=== PATIENT | male | born 1940 | race Caucasian/White ===

== ENCOUNTER 2017-11-14 10:51 | Emergency (ER) | payer OTHER ==
[2017-11-14] MEDS ORDERED: FENTANYL CITR 100 MCG/2 ML ONE (12:25)
--- NOTE | 2017-11-14 13:01 | RAD REPORT ---
EXAM DESCRIPTION: US - Abdomen Exam Limited - 11/14/2017 12:44 pm CLINICAL HISTORY: ABD PAIN COMPARISON: RP EXAM COMPLETE dated 08/03/2011 FINDINGS: The gallbladder demonstrates no gallstones. No pericholecystic fluid or gallbladder wall t hickening. The common bile duct is normal measuring 3 mm. The liver demonstrates no findings of intrahepatic biliary dilatation. IMPRESSION: Unremarkable examination.
--- NOTE | 2017-11-14 13:03 | RAD REPORT ---
EXAM DESCRIPTION: CT - Chest Abd Pelvis Wo Con - 11/14/2017 12:47 pm CLINICAL HISTORY: Chest and abdominal pain status post fall COMPARISON: April 2016 TECHNIQUE: Computed axial tomography of the chest, abdomen and pelvis was obtained. Oral contrast wa s given. IV contrast was not requested. All CT scans are performed using dose optimization technique as appropriate and may include automated exposure control or mA/KV adjustment according to patient size. FINDINGS: The evaluation of mediastinum, rossana, vessels and solid organs is limited secondary to the lack of IV contrast administration A nondisplaced fracture involves the right posterior tenth rib. Mildly displaced fractures involve t he right eleventh and twelfth posterior ribs. A pneumothorax is not seen. A pleural effusion is not visualized. A mediastinal hematoma is not seen. Coronary arterial calcifications are present. The liver, spleen, pancreas, adrenals and kidneys do not demonstrate a significant abnormality. The b ladder appears grossly normal. Inguinal hernias contain fat. A small hiatal hernia is present There is no evidence of diverticulitis. The appendix is normal. IMPRESSION: Fractures involving of right tenth, eleventh and twelfth posterior ribs No traumatic injury involving the abdomen/pelvis is seen.
--- NOTE | 2017-11-14 13:36 | EDPHYS ---
Physician Documentation [facility] Name: Victor Hugo Gray Age: 77 yrs Sex: Male : 1940 Arrival Date: 11/14/2017 Time: 10:54 Bed 23 Private MD: Raymundo Morrison ED Physician Ry James HPI: 11/14 12:21 This 77 yrs old Male presents to ER via Ambulatory with complaints of SIDE snw PAIN. 12:21 Pt states he went to bed fine last pm and then awoke and has severe pain to right snw back/flank/abdomen. Onset: The symptoms/episode began/occurred suddenly. Severity of symptoms: At their worst the symptoms were severe. The patient has not experienced similar symptoms in the past. It is unknown whether or not the patient has recently seen a physician. Historical: - Allergies: 11:00 No Known Allergies; sg - Home Meds: 11:50 Vitamin B-12 5,000 mcg Oral daily [Active]; acamprostate 333 mg 3 tabs BID,k [Active]; tw2 allopurinol 300 mg Oral tab 1 tab once daily [Active]; allopurinol 300 mg Oral tab 1 tab once daily [Active]; amlodipine 5 mg tab 1 tab once daily [Active]; CoQ-10 Oral daily [Active]; Exelon 13.3 mg/24 hour transdermal pt24 once daily [Active]; exelon/rivastigmine 13.3 mg patch daily [Active]; Fish Oil 300 mg Oral cap 2 tab daily [Active]; Fish Oil 300 mg Oral cap 2 caps twice a day [Active]; folic acid 400 mcg Oral tab once daily [Active]; Iron CR Oral 325 mg twice a day [Active]; Lexapro 10 mg Oral tab 1 tab once daily [Active]; metoprolol tartrate 50 mg Oral tab 1 tab 2 times per day [Active]; metoprolol tartrate 25 mg Oral tab 1 tab once daily [Active]; Namenda 14mg Oral tab daily [Active]; Nuedexta 20-10 mg Oral cap every 12 hours [Active]; omeprazole 10 mg Oral cpDR once daily [Active]; Vitamin Oral tab 1 tab once daily [Active]; simvastatin 40 mg Oral tab once daily [Active]; - PMHx: 11:00 Alzheimers; CAD; Gout; Hypertension; sg - PSHx: 11:00 Carotid surgery; Triple Bypass; sg - Immunization history:: Adult Immunizations up to date. - Social history:: Smoking status: Patient/guardian denies using tobacco. - Ebola Screening: : Patient negative for fever greater than or equal to 101.5 degrees Fahrenheit, and additional compatible Ebola Virus Disease symptoms Patient denies exposure to infectious person Patient denies travel to an Ebola-affected area in the 21 days before illness onset No symptoms or risks identified at this time. ROS: 12:19 Constitutional: Negative for fever, chills, and weight loss, Eyes: Negative for injury, snw pain, redness, and discharge, ENT: Negative for injury, pain, and discharge, Neck: Negative for injury, pain, and swelling, Cardiovascular: Negative for chest pain, palpitations, and edema, Respiratory: Negative for shortness of breath, cough, wheezing, and pleuritic chest pain, : Negative for injury, bleeding, discharge, and swelling, MS/Extremity: Negative for injury and deformity, Skin: Negative for injury, rash, and discoloration, Neuro: Negative for headache, weakness, numbness, tingling, and seizure. 12:19 Abdomen/GI: Positive for abdominal pain, of the right upper quadrant. 12:19 Back: Positive for pain at rest, pain with movement. Exam: 12:17 Constitutional: This is a well developed, well nourished patient who is awake, alert, snw and in no acute distress. Head/Face: Normocephalic, atraumatic. Eyes: Pupils equal round and reactive to light, extra-ocular motions intact. Lids and lashes normal. Conjunctiva and sclera are non-icteric and not injected. Cornea within normal limits. Periorbital areas with no swelling, redness, or edema. ENT: Nares patent. No nasal discharge, no septal abnormalities noted. Tympanic membranes are normal and external auditory canals are clear. Oropharynx with no redness, swelling, or masses, exudates, or evidence of obstruction, uvula midline. Mucous membranes moist. Neck: Trachea midline, no thyromegaly or masses palpated, and no cervical lymphadenopathy. Supple, full range of motion without nuchal rigidity, or vertebral point tenderness. No Meningismus. Cardiovascular: Regular rate and rhythm with a normal S1 and S2. No gallops, murmurs, or rubs. Normal PMI, no JVD. No pulse deficits. Respiratory: Lungs have equal breath sounds bilaterally, clear to auscultation and percussion. No rales, rhonchi or wheezes noted. No increased work of breathing, no retractions or nasal flaring. Back: No spinal tenderness. No costovertebral tenderness. Full range of motion. Skin: Warm, dry with normal turgor. Normal color with no rashes, no lesions, and no evidence of cellulitis. MS/ Extremity: Pulses equal, no cyanosis. Neurovascular intact. Full, normal range of motion. Neuro: Awake and alert, GCS 15, oriented to person, place, time, and situation. Cranial nerves II-XII grossly intact. Motor strength 5/5 in all extremities. Sensory grossly intact. Cerebellar exam normal. Normal gait. 12:17 Chest/axilla: Inspection: normal, Palpation: tenderness, that is moderate, that is severe, of the right lateral posterior chest. 12:17 Abdomen/GI: Inspection: abdomen appears normal, Bowel sounds: normal, Palpation: moderate abdominal tenderness, in the right upper quadrant. Vital Signs: 11:00 Resp 17 S; Pulse Ox 96% on R/A; Pain 6/10; sg 12:20 BP 141 / 66; Pulse 56; Resp 17; Pulse Ox 100% on R/A; tw2 12:26 Temp 97.7(O); tw2 13:20 BP 167 / 85; Pulse 60; Resp 17; Pulse Ox 97% on R/A; tw2 14:07 BP 175 / 77; Pulse 66; Resp 17; Pulse Ox 99% on R/A; tw2 MDM: 11:44 Patient medically screened. snw 12:50 Data reviewed: vital signs, nurses notes. Data interpreted: Pulse oximetry: on room air snw is 100 %. Interpretation: normal. Counseling: I had a detailed discussion with the patient and/or guardian regarding: the historical points, exam findings, and any diagnostic results supporting the discharge/admit diagnosis, the presence of at least one elevated blood pressure reading (>120/80) during this emergency department visit, radiology results. Awaiting: CT scan results, pt just returned to ED from CT. 11/14 12:17 Order name: CT Chest Abdomen Pelvis W/O Contrast; Complete Time: 13:28 snw 11/14 12:19 Order name: US Abdomen Limited; Complete Time: 13:28 snw 11/14 13:45 Order name: Urine Dipstick--Ancillary (enter results) eb 11/14 12:17 Order name: Urine Dipstick-Ancillary (obtain specimen); Complete Time: 14:06 snw Administered Medications: 12:24 Drug: fentaNYL (PF) 75 mcg Route: IM; Site: left deltoid; tw2 13:39 Follow up: Response: No adverse reaction tw2 14:00 Drug: fentaNYL Patch (25 mcg/hr) 1 patches {Note: upper right back.} Route: tw2 Transdermal; Site: affected area; 14:06 Follow up: Response: No adverse reaction tw2 Disposition: 15:15 Co-signature as Attending Physician, Ry James MD I agree with the assessment and jorge plan of care. Disposition: 11/14/17 13:36 Discharged to Home. Impression: Multiple fractures of ribs, right side - 10, 11, \T\ 12. - Condition is Stable. - Discharge Instructions: Fall Prevention in the Home, Rib Fracture, Incentive Spirometer, Fall Prevention in Hospitals, Adult. - Medication Reconciliation Form, Thank You Letter, Antibiotic Education, Prescription Opioid Use form. - Follow up: Raymundo Morrison MD; When: 2 - 3 days; Reason: Recheck today's complaints, Continuance of care, Re-evaluation by your physician. Follow up: Emergency Department; When: As needed; Reason: Trouble breathing, Worsening of condition. Signatures: Dispatcher [employer] EDPR Nain Griffin RN RN sg Anderson, Corey, MD MD cha Therrien, Shelly, WINDER HELPER-C WINDER HELPER-Csnw Sophia Vega RN RN tw2 Corrections: (The following items were deleted from the chart) 13:39 13:29 IS+TRAN.DENISE ordered. [facility] 14:24 13:36 11/14/2017 13:36 Discharged to Home. Impression: Multiple fractures of ribs, tw2 right side - 10, 11, \T\ 12. Condition is Stable. Forms are Medication Reconciliation Form, Thank You Letter, Antibiotic Education, Prescription Opioid Use. Follow up: Raymundo Morrison; When: 2 - 3 days; Reason: Recheck today's complaints, Continuance of care, Re-evaluation by your physician. Follow up: Emergency Department; When: As needed; Reason: Trouble breathing, Worsening of condition. snw
--- NOTE | 2017-11-14 13:36 | ER ---
Nurse's Notes [facility] Name: Victor Hugo Gray Age: 77 yrs Sex: Male : 1940 Arrival Date: 11/14/2017 Time: 10:54 Bed 23 Private MD: Raymundo Morrison Diagnosis: Multiple fractures of ribs, right side-10, 11, \\T\\ 12 Presentation: 11/14 10:58 Presenting complaint: Patient states: right shoulder, rib and hip pain, has hx of sg alzheimers but cant remember falling " if i fell i dont remember when i did it. pt family/middle stitcher reports that they did not witness a fall, but this morning is when he told them that he was hurting. Transition of care: patient was not received from another setting of care. Onset of symptoms was November 14, 2017. Risk Assessment: Do you want to hurt yourself or someone else? Patient reports no desire to harm self or others. Initial Sepsis Screen: Does the patient meet any 2 criteria? No. Patient's initial sepsis screen is negative. Does the patient have a suspected source of infection? No. Patient's initial sepsis screen is negative. Care prior to arrival: None. 10:58 Method Of Arrival: Ambulatory sg 10:58 Acuity: NANETTE 4 sg Historical: - Allergies: 11:00 No Known Allergies; sg - Home Meds: 11:50 Vitamin B-12 5,000 mcg Oral daily [Active]; acamprostate 333 mg 3 tabs BID,k [Active]; tw2 allopurinol 300 mg Oral tab 1 tab once daily [Active]; allopurinol 300 mg Oral tab 1 tab once daily [Active]; amlodipine 5 mg tab 1 tab once daily [Active]; CoQ-10 Oral daily [Active]; Exelon 13.3 mg/24 hour transdermal pt24 once daily [Active]; exelon/rivastigmine 13.3 mg patch daily [Active]; Fish Oil 300 mg Oral cap 2 tab daily [Active]; Fish Oil 300 mg Oral cap 2 caps twice a day [Active]; folic acid 400 mcg Oral tab once daily [Active]; Iron CR Oral 325 mg twice a day [Active]; Lexapro 10 mg Oral tab 1 tab once daily [Active]; metoprolol tartrate 50 mg Oral tab 1 tab 2 times per day [Active]; metoprolol tartrate 25 mg Oral tab 1 tab once daily [Active]; Namenda 14mg Oral tab daily [Active]; Nuedexta 20-10 mg Oral cap every 12 hours [Active]; omeprazole 10 mg Oral cpDR once daily [Active]; Vitamin Oral tab 1 tab once daily [Active]; simvastatin 40 mg Oral tab once daily [Active]; - PMHx: 11:00 Alzheimers; CAD; Gout; Hypertension; sg - PSHx: 11:00 Carotid surgery; Triple Bypass; sg - Immunization history:: Adult Immunizations up to date. - Social history:: Smoking status: Patient/guardian denies using tobacco. - Ebola Screening: : Patient negative for fever greater than or equal to 101.5 degrees Fahrenheit, and additional compatible Ebola Virus Disease symptoms Patient denies exposure to infectious person Patient denies travel to an Ebola-affected area in the 21 days before illness onset No symptoms or risks identified at this time. Screenin:36 Abuse screen: Denies threats or abuse. Nutritional screening: No deficits noted. tw2 Tuberculosis screening: No symptoms or risk factors identified. Fall Risk Secondary diagnosis (15 points) Alzheimer's. Assessment: 11:45 General: Appears uncomfortable, slender, Behavior is calm, cooperative. Pain: Complains tw2 of pain in right upper quadrant and right lateral posterior chest. Neuro: Level of Consciousness is awake, alert, obeys commands, Oriented to person, place, situation. Cardiovascular: Denies chest pain, shortness of breath, Heart tones S1 S2 Capillary refill < 3 seconds Patient's skin is warm and dry. Respiratory: Airway is patent Respiratory effort is even, unlabored, Respiratory pattern is regular, symmetrical, Breath sounds are clear bilaterally. GI: No signs and/or symptoms were reported involving the gastrointestinal system. Abdomen is flat, Bowel sounds present X 4 quads. : No signs and/or symptoms were reported regarding the genitourinary system. EENT: No signs and/or symptoms were reported regarding the EENT system. Derm: No signs and/or symptoms reported regarding the dermatologic system. Musculoskeletal: Reports pain in right upper quadrant and right lateral posterior chest. 12:27 Reassessment: Patient appears in no apparent distress at this time. No changes from tw2 previously documented assessment. Patient and/or family updated on plan of care and expected duration. Pain level reassessed. Patient is alert, oriented x 3, equal unlabored respirations, skin warm/dry/pink. 13:40 Reassessment: Patient appears in no apparent distress at this time. No changes from tw2 previously documented assessment. Patient and/or family updated on plan of care and expected duration. Pain level reassessed. Patient is alert, oriented x 3, equal unlabored respirations, skin warm/dry/pink. 14:07 Reassessment: Patient appears in no apparent distress at this time. No changes from tw2 previously documented assessment. Patient and/or family updated on plan of care and expected duration. Pain level reassessed. Patient is alert, oriented x 3, equal unlabored respirations, skin warm/dry/pink. Vital Signs: 11:00 Resp 17 S; Pulse Ox 96% on R/A; Pain 6/10; sg 12:20 BP 141 / 66; Pulse 56; Resp 17; Pulse Ox 100% on R/A; tw2 12:26 Temp 97.7(O); tw2 13:20 BP 167 / 85; Pulse 60; Resp 17; Pulse Ox 97% on R/A; tw2 14:07 BP 175 / 77; Pulse 66; Resp 17; Pulse Ox 99% on R/A; tw2 ED Course: 10:54 Patient arrived in ED. sb2 10:54 Raymundo Morrison MD is Private Physician. sb2 10:59 Triage completed. sg 10:59 Arm band placed on. sg 11:44 Sophia Vega, CATHY is Primary Nurse. tw2 11:44 Janice Cali [facility]C [facility] snw 11:44 Ry James MD is Attending Physician. snw 11:45 Bed in low position. Call light in reach. Side rails up X2. Adult w/ patient. Pulse ox tw2 on. NIBP on. 12:45 US Abdomen Limited In Process Unspecified. EDMS 12:48 CT Chest Abdomen Pelvis W/O Contrast In Process Unspecified. EDMS 12:48 CT completed. Patient tolerated procedure well. Patient moved to CT via stretcher. sj Patient moved back from CT. 13:15 Assisted with urinal. jp3 13:24 Warm blanket given. Pillow given. jp3 13:25 Urine collected: clean catch specimen, clear, tea colored. jp3 13:35 Raymundo Morrison MD is Referral Physician. snw 13:39 Awaiting: respiratory to give and instruct on Incentive spirometer PRIOR to discharge, tw2 respiratory has been paged. 14:23 No provider procedures requiring assistance completed. Patient did not have IV access tw2 during this emergency room visit. Administered Medications: 12:24 Drug: fentaNYL (PF) 75 mcg Route: IM; Site: left deltoid; tw2 13:39 Follow up: Response: No adverse reaction tw2 14:00 Drug: fentaNYL Patch (25 mcg/hr) 1 patches {Note: upper right back.} Route: tw2 Transdermal; Site: affected area; 14:06 Follow up: Response: No adverse reaction tw2 Outcome: 13:36 Discharge ordered by MD. snw 14:23 Discharged to home via wheelchair, with family. tw2 14:23 Condition: stable 14:23 Discharge instructions given to patient, family, Instructed on discharge instructions, follow up and referral plans. incentive spirometer Demonstrated understanding of instructions, follow-up care, incentive spirometer 14:24 Patient left the ED. tw2 Signatures: Dispatcher [employer] EDMS Nain Griffin, RN RN sg Janice Cali, [employer]ATE-C [employer]-Csnw Candi Tamez Tara RN RN tw2 Gilma Gaona sb2 Deuce Hercules jp3 Corrections: (The following items were deleted from the chart) 14:07 14:06 BP 167 / 85; Pulse 60bpm; Resp 17bpm; Pulse Ox 97% RA; tw2 tw2
[2017-11-14] MEDS ORDERED: FENTANYL 25 MCG/PATCH TD ONE (13:53)
[2017-11-14 15:24] LABS: Urine Blood NEGATIVE (NEG); Urine Glucose NEGATIVE (NEG); Urine Protein 1+ (NEG); Urine Specific Gravity 1.015 (1.005-1.030)
== END 2017-11-14 14:24 | disposition home or self-care (01) ==
LOC: ER 10:51
DX: S22.41XA Multiple fractures of ribs, right side, initial encounter for closed fracture (principal); X58.XXXA Exposure to other specified factors, initial encounter; Y93.9 Activity, unspecified; Y92.9 Unspecified place or not applicable; I10 Essential (primary) hypertension; I25.10 Atherosclerotic heart disease of native coronary artery without angina pectoris; G30.9 Alzheimer's disease, unspecified; F02.80 Dementia in other diseases classified elsewhere, unspecified severity, without behavioral disturbance, psychotic disturbance, mood disturbance, and anxiety
CPT/HCPCS: 71250; 74176; 76705; 81003; J3010; 96372; 99284

== ENCOUNTER 2018-07-24 13:33 | Emergency (ER) | payer OTHER, SELFPAY ==
--- NOTE | 2018-07-24 14:52 | RAD REPORT ---
EXAM DESCRIPTION: Ashley Single View07/24/2018 2:45 pm CLINICAL HISTORY: Chest pain COMPARISON: 2017 FINDINGS: The lungs appear clear of acute infiltrate. The heart is mildly enlarged. Postsurgical changes involve the chest. IMPRESSION: No acute abnormalities displayed
[2018-07-24 15:00] LABS: Absolute Lymphocytes (CBC) 1.3 K/uL (0.7-4.9); Absolute Monocytes 0.6 K/uL (0.1-1.3); Absolute Neutrophil 4.5 K/uL (1.8-8.0); Basophils % 0.9 % (0-1.3); Hematocrit 41.3 % (39.6-49.0); Lymphocytes % 18.2 % (15.3-44.8); MPV 10.1 fL (7.6-11.3); Monocytes % 9.1 % (3.3-12.3); RBC Red Blood Cell Count 4.12 M/uL (4.33-5.43)
[2018-07-24 15:01] LABS: Protime INR 1.05
[2018-07-24 15:16] LABS: ALT/SGPT 161 U/L (12-78); AST/SGOT 121 U/L (15-37); Albumin 4.2 g/dL (3.4-5.0); Alkaline Phosphatase 103 U/L (45-117); BUN Blood Urea Nitrogen 28 mg/dL (7-18); Bicarbonate 28 mmol/L (21-32); Bilirubin Direct 0.2 mg/dL (0-0.2); Bilirubin Total 0.4 mg/dL (0.2-1.0); Glucose Level 116 mg/dL (74-106); Magnesium 2.1 mg/dL (1.8-2.4); NT PRO-BNP 997 pg/mL (<450); Potassium 4.3 mmol/L (3.5-5.1); Protein, Total 8.4 g/dL (6.4-8.2); Sodium Level 137 mmol/L (136-145); Troponin (Emerg Dept Use Only) < 0.02 ng/mL (0.0-0.045)
--- NOTE | 2018-07-24 15:55 | EDPHYS ---
Physician Documentation [facility] Name: Victor Hugo Gray Age: 78 yrs Sex: Male : 1940 Arrival Date: 07/24/2018 Time: 13:36 Bed 6 Private MD: ED Physician Kyle Drake HPI: 07/24 14:15 This 78 yrs old Male presents to ER via Wheelchair with complaints of Chest pm1 Pain. 14:15 The patient or guardian reports chest pain that is located primarily in the anterior pm1 aspect of left upper chest. Onset: yesterday. The pain does not radiate. Associated signs and symptoms: Pertinent positives: shortness of breath, Pertinent negatives: abdominal pain, cough, diaphoresis, dizziness, headache, nausea, vomiting. The chest pain is described as aching. Duration: The patient or guardian reports a single episode, that is still ongoing. Modifying factors: The symptoms are alleviated by nothing. the symptoms are aggravated by exertion. Severity of pain: in the emergency department the pain is unchanged. The patient has experienced similar episodes in the past, a few times. The patient has not recently seen a physician. Historical: - Allergies: 13:43 No Known Allergies; tw2 - Home Meds: 13:43 acamprostate 333 mg 3 tabs BID,k [Active]; allopurinol 300 mg Oral tab 1 tab once daily tw2 [Active]; amlodipine 5 mg tab 1 tab once daily [Active]; CoQ-10 Oral daily [Active]; Exelon 13.3 mg/24 hour transdermal pt24 once daily [Active]; exelon/rivastigmine 13.3 mg patch daily [Active]; Fish Oil 300 mg Oral cap 2 tab daily [Active]; folic acid 400 mcg Oral tab once daily [Active]; Iron CR Oral 325 mg twice a day [Active]; Lexapro 10 mg Oral tab 1 tab once daily [Active]; metoprolol tartrate 50 mg Oral tab 1 tab 2 times per day [Active]; metoprolol tartrate 25 mg Oral tab 1 tab once daily [Active]; Namenda 14mg Oral tab daily [Active]; Nuedexta 20-10 mg Oral cap every 12 hours [Active]; omeprazole 10 mg Oral cpDR once daily [Active]; Vitamin Oral tab 1 tab once daily [Active]; simvastatin 40 mg Oral tab once daily [Active]; Vitamin B-12 5,000 mcg Oral daily [Active]; - PMHx: 13:43 CAD; Alzheimers; Gout; Hypertension; tw2 - PSHx: 13:43 Triple Bypass; Carotid surgery; tw2 - Immunization history:: Adult Immunizations. - Social history:: Smoking status: Patient/guardian denies using tobacco, the patient reports quitting approximately 15 years ago. - Ebola Screening: : Patient denies travel to an Ebola-affected area in the 21 days before illness onset. ROS: 14:15 Constitutional: Negative for fever, chills, and weight loss, Eyes: Negative for injury, pm1 pain, redness, and discharge, ENT: Negative for injury, pain, and discharge, Neck: Negative for injury, pain, and swelling. 14:15 Abdomen/GI: Negative for abdominal pain, nausea, vomiting, diarrhea, and constipation, Back: Negative for injury and pain, : Negative for injury, bleeding, discharge, and swelling, MS/Extremity: Negative for injury and deformity, Skin: Negative for injury, rash, and discoloration, Neuro: Negative for headache, weakness, numbness, tingling, and seizure. 14:15 Cardiovascular: Positive for chest pain, Negative for edema, orthopnea, palpitations. 14:15 Respiratory: Positive for shortness of breath, Negative for cough, sputum production, wheezing. Exam: 14:15 Constitutional: This is a well developed, well nourished patient who is awake, alert, pm1 and in no acute distress. Head/Face: Normocephalic, atraumatic. Eyes: Pupils equal round and reactive to light, extra-ocular motions intact. Lids and lashes normal. Conjunctiva and sclera are non-icteric and not injected. Cornea within normal limits. Periorbital areas with no swelling, redness, or edema. ENT: Nares patent. No nasal discharge, no septal abnormalities noted. Tympanic membranes are normal and external auditory canals are clear. Oropharynx with no redness, swelling, or masses, exudates, or evidence of obstruction, uvula midline. Mucous membranes moist. Neck: Trachea midline, no thyromegaly or masses palpated, and no cervical lymphadenopathy. Supple, full range of motion without nuchal rigidity, or vertebral point tenderness. No Meningismus. Chest/axilla: Normal chest wall appearance and motion. Nontender with no deformity. No lesions are appreciated. Cardiovascular: Regular rate and rhythm with a normal S1 and S2. No gallops, murmurs, or rubs. Normal PMI, no JVD. No pulse deficits. Respiratory: Lungs have equal breath sounds bilaterally, clear to auscultation and percussion. No rales, rhonchi or wheezes noted. No increased work of breathing, no retractions or nasal flaring. Abdomen/GI: Soft, non-tender, with normal bowel sounds. No distension or tympany. No guarding or rebound. No evidence of tenderness throughout. Back: No spinal tenderness. No costovertebral tenderness. Full range of motion. Skin: Warm, dry with normal turgor. Normal color with no rashes, no lesions, and no evidence of cellulitis. MS/ Extremity: Pulses equal, no cyanosis. Neurovascular intact. Full, normal range of motion. 14:15 Neuro: Orientation: is normal, Motor: is normal, Sensation: is normal, no obvious gross deficits. Vital Signs: 13:40 BP 119 / 60; Pulse 77; Resp 17; Temp 97.5(TE); Pulse Ox 96% on R/A; Weight 58.97 kg tw2 (R); Height 5 ft. 5 in. (165.10 cm); Pain 0/10; 14:15 BP 136 / 76; Pulse 70; Resp 16; Pulse Ox 99% on R/A; hb 15:00 BP 148 / 82; Pulse 68; Resp 17; Pulse Ox 100% on R/A; hb 13:40 Body Mass Index 21.63 (58.97 kg, 165.10 cm) tw2 MDM: 14:15 Patient medically screened. pm1 15:23 Data reviewed: vital signs. Data interpreted: Pulse oximetry: on room air is 96 %. pm1 Interpretation: normal. 15:30 Counseling: I had a detailed discussion with the patient and/or guardian regarding: the pm1 historical points, exam findings, and any diagnostic results supporting the discharge/admit diagnosis, lab results, radiology results, the need for further work-up and treatment in the hospital. 15:30 Refusal of service: The patient/guardian displays adequate decision making capability pm1 and despite a detailed discussion of alternatives, benefits, risks, and consequences refuses: Admission to the hospital for further work-up and treatment. 15:30 Special discussion: Patient is alert to name, location, and the reason he is in the ER. pm1 Patient understands that I want to put him into the hospital due to his complaint of chest pain with a history of CAD and triple by pass. Boot And Saddle Repair Person contacted the son on the phone. The son has power of prosthetics lab technician. The career transition specialist informed the son that I wished to admit the patient for chest pain evaluation but that the patient does not want to stay. According to the career transition specialist, the son is fine with the patient going home and following up with his doctor. He will take him to follow up with his doctor, Dr. Romeo. He plans on calling him today to set up an appointment. . 07/24 14:15 Order name: Basic Metabolic Panel; Complete Time: 15:23 pm1 07/24 14:15 Order name: CBC with Diff; Complete Time: 15:04 pm07/24 14:15 Order name: LFT's; Complete Time: 15:23 pm07/24 14:15 Order name: Magnesium; Complete Time: 15:23 pm07/24 14:15 Order name: NT PRO-BNP; Complete Time: 15:23 pm1 07/24 14:15 Order name: PT-INR; Complete Time: 15:23 pm07/24 14:15 Order name: Troponin (emerg Dept Use Only); Complete Time: 15:23 pm1 07/24 14:15 Order name: XRAY Chest (1 view); Complete Time: 14:56 pm07/24 14:15 Order name: EKG; Complete Time: 14:16 pm07/24 14:15 Order name: Cardiac monitoring; Complete Time: 14:52 pm07/24 14:15 Order name: EKG - Nurse/Tech; Complete Time: 14:52 pm07/24 14:15 Order name: IV Saline Lock; Complete Time: 14:53 pm07/24 14:15 Order name: Labs collected and sent; Complete Time: 14:53 pm1 07/24 14:15 Order name: O2 Per Protocol; Complete Time: 14:53 pm07/24 14:15 Order name: O2 Sat Monitoring; Complete Time: 14:53 pm1 Administered Medications: No medications were administered Disposition: 16:25 Co-signature as Attending Physician, Kyle Drake MD I agree with the assessment and kdr plan of care. Disposition: 07/24/18 15:54 Discharged to Home. Impression: Chest pain, unspecified. - Condition is Stable. - Discharge Instructions: Nonspecific Chest Pain. - Medication Reconciliation Form, Thank You Letter, Antibiotic Education, Prescription Opioid Use form. - Follow up: Emergency Department; When: As needed; Reason: Worsening of condition. Follow up: Brodie Romeo MD; When: Upon discharge from the Emergency Department; Reason: Recheck today's complaints, Continuance of care, Re-evaluation by your physician. - Problem is new. - Symptoms have improved. Signatures: Dispatcher [employer] EDMS Kyle Drake MD MD [facility] Freeman Mack, VP [employer] VP [employer] pm1 Tiera Shaw, RN RN hb Sophia Vega RN RN tw2 Corrections: (The following items were deleted from the chart) 15:59 15:54 07/24/2018 15:54 Discharged to Home. Impression: Chest pain, unspecified. pm1 Condition is Stable. Forms are Medication Reconciliation Form, Thank You Letter, Antibiotic Education, Prescription Opioid Use. Follow up: Emergency Department; When: As needed; Reason: Worsening of condition. Follow up: Brodie Romeo; When: 1 - 2 days; Reason: Recheck today's complaints, Continuance of care, Re-evaluation by your physician. Problem is new. Symptoms have improved. pm1 16:02 15:59 07/24/2018 15:54 Discharged to Home. Impression: Chest pain, unspecified. hb Condition is Stable. Discharge Instructions: Nonspecific Chest Pain. Forms are Medication Reconciliation Form, Thank You Letter, Antibiotic Education, Prescription Opioid Use. Follow up: Emergency Department; When: As needed; Reason: Worsening of condition. Follow up: Brodie Romeo; When: Upon discharge from the Emergency Department; Reason: Recheck today's complaints, Continuance of care, Re-evaluation by your physician. Problem is new. Symptoms have improved. pm1
--- NOTE | 2018-07-24 15:55 | ER ---
Nurse's Notes [facility] Name: Victor Hugo Gray Age: 78 yrs Sex: Male : 1940 Arrival Date: 07/24/2018 Time: 13:36 Bed 6 Private MD: Diagnosis: Chest pain, unspecified Presentation: 07/24 13:40 Presenting complaint: Patient states: j am having just a little bit of shoulder LEFT tw2 and chest pain, started yesterday. Transition of care: patient was not received from another setting of care. Onset of symptoms was July 24, 2018. Risk Assessment: Do you want to hurt yourself or someone else? Patient reports no desire to harm self or others. Initial Sepsis Screen: Does the patient meet any 2 criteria? No. Patient's initial sepsis screen is negative. Does the patient have a suspected source of infection? No. Patient's initial sepsis screen is negative. Care prior to arrival: None. 13:40 Method Of Arrival: Wheelchair tw2 13:40 Acuity: NANETTE 3 tw2 13:43 Presenting complaint: Patient states: "i have a caregiver and i think she is taking tw2 over care of me and brought me up here". Triage Assessment: 13:41 General: Appears in no apparent distress. Behavior is calm, cooperative, appropriate tw2 for age. Pain: Denies pain. Cardiovascular: Reports chest pain, yesterday, "none right now". Historical: - Allergies: 13:43 No Known Allergies; tw2 - Home Meds: 13:43 acamprostate 333 mg 3 tabs BID,k [Active]; allopurinol 300 mg Oral tab 1 tab once daily tw2 [Active]; amlodipine 5 mg tab 1 tab once daily [Active]; CoQ-10 Oral daily [Active]; Exelon 13.3 mg/24 hour transdermal pt24 once daily [Active]; exelon/rivastigmine 13.3 mg patch daily [Active]; Fish Oil 300 mg Oral cap 2 tab daily [Active]; folic acid 400 mcg Oral tab once daily [Active]; Iron CR Oral 325 mg twice a day [Active]; Lexapro 10 mg Oral tab 1 tab once daily [Active]; metoprolol tartrate 50 mg Oral tab 1 tab 2 times per day [Active]; metoprolol tartrate 25 mg Oral tab 1 tab once daily [Active]; Namenda 14mg Oral tab daily [Active]; Nuedexta 20-10 mg Oral cap every 12 hours [Active]; omeprazole 10 mg Oral cpDR once daily [Active]; Vitamin Oral tab 1 tab once daily [Active]; simvastatin 40 mg Oral tab once daily [Active]; Vitamin B-12 5,000 mcg Oral daily [Active]; - PMHx: 13:43 CAD; Alzheimers; Gout; Hypertension; tw2 - PSHx: 13:43 Triple Bypass; Carotid surgery; tw2 - Immunization history:: Adult Immunizations. - Social history:: Smoking status: Patient/guardian denies using tobacco, the patient reports quitting approximately 15 years ago. - Ebola Screening: : Patient denies travel to an Ebola-affected area in the 21 days before illness onset. Screenin:45 Abuse screen: Denies threats or abuse. Denies injuries from another. Nutritional hb screening: No deficits noted. Tuberculosis screening: No symptoms or risk factors identified. Fall Risk None identified. Assessment: 14:20 General: Appears in no apparent distress. Behavior is calm, cooperative. Pain: hb Complains of pain in chest left arm Pain began gradually, 4 hours ago. Neuro: Level of Consciousness is awake, alert, obeys commands, Oriented to person, place, time, situation. Cardiovascular: Heart tones S1 S2 present Capillary refill < 3 seconds Patient's skin is warm and dry. Respiratory: Airway is patent Respiratory effort is even, unlabored, Respiratory pattern is regular, symmetrical, Breath sounds are clear bilaterally. GI: No signs and/or symptoms were reported involving the gastrointestinal system. : No signs and/or symptoms were reported regarding the genitourinary system. EENT: No signs and/or symptoms were reported regarding the EENT system. Derm: Skin is intact, is healthy with good turgor, Skin is pink, warm \\T\\ dry. Musculoskeletal: No signs and/or symptoms reported regarding the musculoskeletal system. 15:15 Reassessment: Patient appears in no apparent distress at this time. Patient and/or hb family updated on plan of care and expected duration. Pain level reassessed. Patient is alert, oriented x 3, equal unlabored respirations, skin warm/dry/pink. Vital Signs: 13:40 BP 119 / 60; Pulse 77; Resp 17; Temp 97.5(TE); Pulse Ox 96% on R/A; Weight 58.97 kg tw2 (R); Height 5 ft. 5 in. (165.10 cm); Pain 0/10; 14:15 BP 136 / 76; Pulse 70; Resp 16; Pulse Ox 99% on R/A; hb 15:00 BP 148 / 82; Pulse 68; Resp 17; Pulse Ox 100% on R/A; hb 13:40 Body Mass Index 21.63 (58.97 kg, 165.10 cm) tw2 ED Course: 13:36 Patient arrived in ED. mr 13:40 Triage completed. tw2 13:40 Arm band placed on. tw2 13:43 EKG completed in triage. Results shown to MD. tw2 13:46 EKG done, by solid waste landfill technician. reviewed by Kyle Drake MD. sm3 14:09 Freeman Mack NP is PHCP. pm1 14:09 Kyle Drake MD is Attending Physician. pm1 14:30 Patient has correct armband on for positive identification. Placed in gown. Bed in low hb position. conveyor monitor on. Pulse ox on. NIBP on. 14:45 XRAY Chest (1 view) In Process Unspecified. EDMS 14:45 Initial lab(s) drawn, by me, sent to lab. Inserted saline lock: 22 gauge in right dh3 antecubital area, using aseptic technique. Blood collected. 15:00 Patient maintains SpO2 saturation greater than 95% on room air. hb 15:53 Brodie Romeo MD is Referral Physician. pm1 16:00 No provider procedures requiring assistance completed. IV discontinued, intact, hb bleeding controlled, No redness/swelling at site. Administered Medications: No medications were administered Outcome: 15:54 Discharge ordered by . pm1 16:01 Discharged to home ambulatory. hb 16:01 Condition: stable 16:01 Discharge instructions given to patient, Instructed on discharge instructions, follow up and referral plans. medication usage, Demonstrated understanding of instructions, follow-up care, medications. 16:02 Patient left the ED. hb Signatures: Dispatcher [employer] EDNH Livia Bland mr GloriamistiFreeman, STEPHEN TECHNICAL BUSINESS SYSTEMS ANALYST pm1 Tiera Shaw RN RN Sophia Vega RN RN 2 Vilma Sutton dh3 Julius Sousara sm3
--- NOTE | 2018-07-24 17:46 | EKG ---
Test Date: 2018-07-24 Test Time: 13:43:58 Residential Lawn Specialist: KIM MEASUREMENT RESULTS: Intervals: Rate: 74 VA: 196 QRSD: 106 QT: 392 QTc: 435 [place]: P: 79 VA: 196 QRS: -59 T: -63 INTERPRETIVE STATEMENTS: Normal sinus rhythm Left axis ST & T wave abnormality, consider inferolateral ischemia Anterior infarct Abnormal ECG Compared to ECG 11/13/2016 17:20:21 Sinus bradycardia no longer present ST (T wave) deviation still present Electronically Signed On 07-24-18 17:45:47 CDT by Brodie Romeo
== END 2018-07-24 16:02 | disposition home or self-care (01) ==
LOC: ER 13:33
DX: R07.9 Chest pain, unspecified (principal); I25.10 Atherosclerotic heart disease of native coronary artery without angina pectoris; I10 Essential (primary) hypertension; G30.9 Alzheimer's disease, unspecified; F02.80 Dementia in other diseases classified elsewhere, unspecified severity, without behavioral disturbance, psychotic disturbance, mood disturbance, and anxiety; M10.9 Gout, unspecified; Z87.891 Personal history of nicotine dependence
CPT/HCPCS: 36415; 71045; 80048; 80076; 83735; 83880; 84484; 85025; 85610; 93005; 99285

== ENCOUNTER 2018-07-27 14:35 | Observation (INO) | payer OTHER, SELFPAY ==
[2018-07-27 15:23] LABS: Absolute Lymphocytes (CBC) 1.4 K/uL (0.7-4.9); Absolute Monocytes 0.8 K/uL (0.1-1.3); Absolute Neutrophil 5.9 K/uL (1.8-8.0); Eosinophils % 4.8 % (0-4.4); Hematocrit 40.7 % (39.6-49.0); Lymphocytes % 16.6 % (15.3-44.8); MPV 9.9 fL (7.6-11.3); RBC Red Blood Cell Count 4.04 M/uL (4.33-5.43)
[2018-07-27 15:24] LABS: Protime INR 1.11
[2018-07-27 15:44] LABS: ALT/SGPT 192 U/L (12-78); AST/SGOT 128 U/L (15-37); Alkaline Phosphatase 104 U/L (45-117); BUN Blood Urea Nitrogen 31 mg/dL (7-18); Bicarbonate 24 mmol/L (21-32); Bilirubin Direct 0.2 mg/dL (0-0.2); Bilirubin Total 0.5 mg/dL (0.2-1.0); Glucose Level 123 mg/dL (74-106); Magnesium 2.1 mg/dL (1.8-2.4); NT PRO-BNP 920 pg/mL (<450); Potassium 4.3 mmol/L (3.5-5.1); Protein, Total 7.9 g/dL (6.4-8.2); Sodium Level 138 mmol/L (136-145); Troponin (Emerg Dept Use Only) < 0.02 ng/mL (0.0-0.045)
[2018-07-27] MEDS ORDERED: ASPIRIN 81 MG CHEWABLE TABLET ONE (16:04)
[2018-07-27] MEDS ORDERED: ONDANSETRON 4 MG/2 ML VIAL ONE (16:04)
[2018-07-27] MEDS ORDERED: MORPHINE 2 MG/ML SYR ONE (16:04)
[2018-07-27] MEDS ORDERED: FUROSEMIDE 20 MG/ 2ML VIAL ONE (16:08)
--- NOTE | 2018-07-27 16:40 | RAD REPORT ---
EXAM DESCRIPTION: Ashley Single View07/27/2018 3:33 pm CLINICAL HISTORY: Chest pain COMPARISON: July 24, 2018 FINDINGS: The lungs appear clear of acute infiltrate. The heart is mildly enlarged. Postsurgical changes involve the chest. IMPRESSION: No acute abnormalities displayed
--- NOTE | 2018-07-27 16:44 | EDPHYS ---
Physician Documentation [facility] Name: Victor Hugo Gray Age: 78 yrs Sex: Male : 1940 Arrival Date: 07/27/2018 Time: 14:37 Bed 30 Private MD: Raymundo Morrison ED Physician Gavino Whitt HPI: 07/27 15:30 This 78 yrs old Male presents to ER via Wheelchair with complaints of Chest cp Pain. 15:30 The patient or guardian reports chest pain that is located primarily in the anterior cp chest wall. 15:30 Onset: 1 week(s) ago. The pain does not radiate. Associated signs and symptoms: cp Pertinent positives: abdominal pain, cough, diaphoresis, lower extremity pain, lower extremity swelling, shortness of breath, syncope, vomiting. The chest pain is described as sharp. Duration: The patient or guardian reports multiple episodes, that are intermittent. Modifying factors: the symptoms are aggravated by deep breath. Severity of pain: in the emergency department the pain is unchanged despite home interventions. Historical: - Allergies: 14:44 No Known Allergies; la1 - Home Meds: 15:01 acamprostate 333 mg 3 tabs BID,k [Active]; allopurinol 300 mg Oral tab 1 tab once daily rv [Active]; amlodipine 5 mg tab 1 tab once daily [Active]; CoQ-10 Oral daily [Active]; Exelon 13.3 mg/24 hour transdermal pt24 once daily [Active]; exelon/rivastigmine 13.3 mg patch daily [Active]; Fish Oil 300 mg Oral cap 2 tab daily [Active]; folic acid 400 mcg Oral tab once daily [Active]; Iron CR Oral 325 mg twice a day [Active]; Lexapro 10 mg Oral tab 1 tab once daily [Active]; metoprolol tartrate 50 mg Oral tab 1 tab 2 times per day [Active]; metoprolol tartrate 25 mg Oral tab 1 tab once daily [Active]; Namenda 14mg Oral tab daily [Active]; Nuedexta 20-10 mg Oral cap every 12 hours [Active]; omeprazole 10 mg Oral cpDR once daily [Active]; Vitamin Oral tab 1 tab once daily [Active]; simvastatin 40 mg Oral tab once daily [Active]; Vitamin B-12 5,000 mcg Oral daily [Active]; - PMHx: 14:44 Alzheimers; CAD; Gout; Hypertension; la1 - PSHx: 15:01 CABG; rv - Immunization history:: Adult Immunizations up to date. - Social history:: Smoking status: Patient/guardian denies using tobacco. - Ebola Screening: : No symptoms or risks identified at this time. ROS: 15:35 Constitutional: Negative for body aches, chills, fever, poor PO intake. cp 15:35 Eyes: Negative for injury, pain, redness, and discharge. cp 15:35 ENT: Negative for drainage from ear(s), ear pain, sore throat, difficulty swallowing, cp difficulty handling secretions. 15:35 Cardiovascular: Positive for chest pain, Negative for edema, palpitations. 15:35 Respiratory: Negative for cough, shortness of breath, wheezing. 15:35 Abdomen/GI: Negative for abdominal pain, nausea, vomiting, and diarrhea, black/tarry stool, rectal bleeding. 15:35 Back: Negative for pain at rest, pain with movement, radiated pain. 15:35 Skin: Negative for cellulitis, rash. 15:35 Neuro: Negative for altered mental status, dizziness, headache, syncope, weakness. 15:35 All other systems are negative. Exam: 15:00 ECG was reviewed by the Attending Physician. cp 15:38 Constitutional: The patient appears in no acute distress, alert, awake, cp non-diaphoretic, non-toxic, well developed, well nourished. 15:38 Head/Face: Normocephalic, atraumatic. cp 15:38 Eyes: Pupils equal round and reactive to light, extra-ocular motions intact. Lids and cp lashes normal. Conjunctiva and sclera are non-icteric and not injected. Cornea within normal limits. Periorbital areas with no swelling, redness, or edema. ENT: Nares patent. No nasal discharge, no septal abnormalities noted. Tympanic membranes are normal and external auditory canals are clear. Oropharynx with no redness, swelling, or masses, exudates, or evidence of obstruction, uvula midline. Mucous membranes moist. Chest/axilla: Normal chest wall appearance and motion. Nontender with no deformity. No lesions are appreciated. 15:38 Cardiovascular: Rate: normal, Rhythm: regular, Edema: is not appreciated, JVD: is not appreciated. 15:38 Respiratory: the patient does not display signs of respiratory distress, Respirations: cp normal, no use of accessory muscles, no retractions, no splinting, no tachypnea, labored breathing, is not present, Breath sounds: are clear throughout, no decreased breath sounds, no stridor, no wheezing. 15:38 Abdomen/GI: Inspection: abdomen appears normal, Bowel sounds: active, all quadrants, Palpation: abdomen is soft and non-tender, in all quadrants, rebound tenderness, is not appreciated, involuntary guarding, is not appreciated. 15:38 Back: pain, is absent, ROM is normal. 15:38 Skin: cellulitis, is not appreciated, no rash present. 15:38 Neuro: Orientation: no acute changes, per family, Mentation: no acute changes, per family, Motor: moves all fours, strength is normal. Vital Signs: 14:45 BP 123 / 70; Pulse 96; Resp 16; Temp 97.1; Pulse Ox 99% on R/A; Weight 77.11 kg; Height la1 5 ft. 9 in. (175.26 cm); 15:00 BP 141 / 72 LA Supine; Pulse 76; Resp 15 S; Pulse Ox 97% on R/A; rv 15:30 BP 151 / 74 LA Supine; Pulse 74; Resp 17 S; Pulse Ox 98% on R/A; rv 16:00 BP 131 / 83 LA; Pulse 75; Resp 17 S; Pulse Ox 97% on R/A; rv 16:30 BP 148 / 82 LA; Pulse 72; Resp 17 S; Pulse Ox 96% on R/A; rv 17:00 BP 146 / 85 LA Supine; Pulse 70; Resp 15 S; Pulse Ox 97% on R/A; rv 18:00 BP 146 / 84 LA Supine; Pulse 74; Resp 17 S; Pulse Ox 99% on R/A; rv 19:00 BP 135 / 82 LA Supine; Pulse 85; Resp 18 S; Pulse Ox 99% on R/A; rv 14:45 Body Mass Index 25.10 (77.11 kg, 175.26 cm) la1 MDM: 14:57 Patient medically screened. cp 15:00 Differential diagnosis: abnormal EKG, acute myocardial infarction, acute pericarditis, cp chest wall pain, cholecystitis, Cholelithiasis costochondritis, esophagitis, gastritis, pancreatitis, pleurisy, pneumonia, pneumothorax, pulmonary embolus, thoracic aortic disection, unstable angina. 16:40 The patient was given aspirin in the Emergency Department. 16:40 Data reviewed: vital signs, nurses notes, lab test result(s), EKG, radiologic studies, cp plain films. 16:45 Physician consultation: Georgiana Clayton MD was called at 16:40, was contacted at 16:40, cp regarding admission, to the telemetry unit. patient's condition. 07/27 14:57 Order name: Basic Metabolic Panel; Complete Time: 16:05 07/27 16:06 Interpretation: Normal except: GLUC 123; BUN 31; CRE 2.00; GFR 32. 07/27 14:57 Order name: CBC with Diff; Complete Time: 16:05 07/27 16:07 Interpretation: Normal except: WBC 8.7; RBC 4.04; HGB 13.5; MCV 100.8; EOSINOPHIL % 4.8. 07/27 14:57 Order name: LFT's; Complete Time: 16:05 07/27 16:07 Interpretation: Normal except: AST 128; ALT 192; GLOB 3.9; A/G 1.0. 07/27 14:57 Order name: Magnesium; Complete Time: 16:05 07/27 14:57 Order name: NT PRO-BNP; Complete Time: 16:05 07/27 14:57 Order name: PT-INR; Complete Time: 16:05 07/27 14:57 Order name: Troponin (emerg Dept Use Only); Complete Time: 16:05 07/27 14:57 Order name: XRAY Chest (1 view); Complete Time: 17:56 07/27 16:31 Order name: US Abdomen Limited; Complete Time: 17:56 07/27 17:56 Interpretation: Report reviewed. 07/27 17:56 Order name: Troponin I EDOK 07/27 17:56 Order name: Troponin I EDOK 07/27 17:56 Order name: Troponin I EDOK 07/27 17:56 Order name: Troponin I EDOK 07/27 14:57 Order name: EKG; Complete Time: 14:58 07/27 14:57 Order name: Cardiac monitoring; Complete Time: 15:28 07/27 14:57 Order name: EKG - Nurse/Tech; Complete Time: 15:28 cp 07/27 14:57 Order name: IV Saline Lock; Complete Time: 15:28 cp 07/27 14:57 Order name: Labs collected and sent; Complete Time: 15:28 cp 07/27 14:57 Order name: O2 Per Protocol; Complete Time: 15:28 cp 07/27 14:57 Order name: O2 Sat Monitoring; Complete Time: 15:28 cp 07/27 17:56 Order name: CONS Physician Consult EDOK 07/27 17:56 Order name: Heart Healthy EDOK EC:00 Rate is 79 beats/min. Rhythm is regular. ID interval is normal. QRS interval is cp prolonged at 108 msec. QT interval is normal. T waves are Inverted in leads II, III, aVF, V3, V4, V5, V6. Interpreted by me. Reviewed by me. Administered Medications: 15:58 Drug: Aspirin Chewable Tablet 324 mg Route: PO; rv 17:11 Follow up: Response: No adverse reaction rv 15:58 Drug: morphine 2 mg Route: IVP; Site: right antecubital; rv 17:10 Follow up: Response: Pain is decreased rv 15:58 Drug: Zofran 4 mg Route: IVP; Site: right antecubital; rv 17:10 Follow up: Response: No adverse reaction rv Disposition: 07/27/18 16:44 Hospitalization ordered by Georgiana Clayton for Observation. Preliminary diagnosis is Angina pectoris, unspecified. - Bed requested for Telemetry/MedSurg (observation). - Status is Observation. rv - Condition is Stable. - Problem is new. - Symptoms have improved. UTI on Admission? No Addendum: 07/29/2018 08:09 Co-signature as Attending Physician, Gavino Whitt MD Available for consultation at p s1 all times. . Signatures: Dispatcher [employer] [facility] Angelica Finn RN RN dw Attema, Lee, RN RN la1 Ry Thomas PA PA cp Singer, Phillip, MD MD ps1 Vicente, Ronaldo, RN RN rv Corrections: (The following items were deleted from the chart) 07/27 18:08 16:44 Hospitalization Ordered by Georgiana Clayton MD for Observation. Preliminary dw diagnosis is Angina pectoris, unspecified. Bed requested for Telemetry/MedSurg (observation). Status is Observation. Condition is Stable. Problem is new. Symptoms have improved. UTI on Admission? No. cp 18:07/26 15:35 Constitutional: Negative for body aches, chills, fever, poor PO intake, cp cp 04 18:11 07/26 15:35 Eyes: Negative for injury, pain, redness, and discharge, cp cp 07/27 18:07/26 15:35 ENT: Negative for drainage from ear(s), ear pain, sore throat, difficulty cp swallowing, difficulty handling secretions, cp 07/27 18:07/26 15:35 Cardiovascular: Positive for chest pain, Negative for edema, palpitations, cp cp 07/27 18:07/26 15:35 Respiratory: Negative for cough, shortness of breath, wheezing, cp cp 04 18:07/26 15:35 Neck: Negative for pain with movement, pain at rest, stiffness, cp cp 07/27 18:07/26 15:35 Abdomen/GI: Negative for abdominal pain, vomiting, diarrhea, constipation, cp black/tarry stool, rectal bleeding, cp 07/27 18:07/26 15:35 Back: Negative for pain at rest, pain with movement, radiated pain, cp cp 04 18:07/26 15:35 : Negative for urinary symptoms, cp cp 04 18:07/26 15:35 Skin: Negative for cellulitis, rash, cp cp 04 18:07/26 15:35 Neuro: Negative for altered mental status, dizziness, headache, syncope, cp weakness, cp 07/27 18:07/26 15:35 All other systems are negative, cp cp 04 18:20 18:08 07/27/2018 16:44 Hospitalization Ordered by Georgiana Clayton MD for Observation. dw Preliminary diagnosis is Angina pectoris, unspecified. Bed requested for Telemetry/MedSurg (observation). Status is Observation. Condition is Stable. Problem is new. Symptoms have improved. UTI on Admission? No. dw 19:46 18:20 07/27/2018 16:44 Hospitalization Ordered by Georgiana Clayton MD for Observation. rv Preliminary diagnosis is Angina pectoris, unspecified. Bed requested for Telemetry/MedSurg (observation). Status is Observation. Condition is Stable. Problem is new. Symptoms have improved. UTI on Admission? No. dw
--- NOTE | 2018-07-27 16:44 | ER ---
Nurse's Notes [facility] Name: Victor Hugo Gray Age: 78 yrs Sex: Male : 1940 Arrival Date: 07/27/2018 Time: 14:37 Bed 30 Private MD: Raymundo Morrison Diagnosis: Angina pectoris, unspecified Presentation: 07/27 14:44 Presenting complaint: Patient states: Chest pain that is described as sharp and made la1 worse with deep breathing for a week "or maybe more". Transition of care: patient was not received from another setting of care. Onset of symptoms was July 27, 2018. Risk Assessment: Do you want to hurt yourself or someone else? Patient reports no desire to harm self or others. Initial Sepsis Screen: Does the patient meet any 2 criteria? No. Patient's initial sepsis screen is negative. Does the patient have a suspected source of infection? No. Patient's initial sepsis screen is negative. Care prior to arrival: None. 14:44 Method Of Arrival: Wheelchair la1 14:44 Acuity: NANETTE 3 la1 Historical: - Allergies: 14:44 No Known Allergies; la1 - Home Meds: 15:01 acamprostate 333 mg 3 tabs BID,k [Active]; allopurinol 300 mg Oral tab 1 tab once daily rv [Active]; amlodipine 5 mg tab 1 tab once daily [Active]; CoQ-10 Oral daily [Active]; Exelon 13.3 mg/24 hour transdermal pt24 once daily [Active]; exelon/rivastigmine 13.3 mg patch daily [Active]; Fish Oil 300 mg Oral cap 2 tab daily [Active]; folic acid 400 mcg Oral tab once daily [Active]; Iron CR Oral 325 mg twice a day [Active]; Lexapro 10 mg Oral tab 1 tab once daily [Active]; metoprolol tartrate 50 mg Oral tab 1 tab 2 times per day [Active]; metoprolol tartrate 25 mg Oral tab 1 tab once daily [Active]; Namenda 14mg Oral tab daily [Active]; Nuedexta 20-10 mg Oral cap every 12 hours [Active]; omeprazole 10 mg Oral cpDR once daily [Active]; Vitamin Oral tab 1 tab once daily [Active]; simvastatin 40 mg Oral tab once daily [Active]; Vitamin B-12 5,000 mcg Oral daily [Active]; - PMHx: 14:44 Alzheimers; CAD; Gout; Hypertension; la1 - PSHx: 15:01 CABG; rv - Immunization history:: Adult Immunizations up to date. - Social history:: Smoking status: Patient/guardian denies using tobacco. - Ebola Screening: : No symptoms or risks identified at this time. Screenin:58 Abuse screen: Denies threats or abuse. Denies injuries from another. Nutritional rv screening: No deficits noted. Tuberculosis screening: No symptoms or risk factors identified. Fall Risk None identified. Assessment: 14:57 General: Appears in no apparent distress. comfortable, Behavior is calm, cooperative. rv Pain: Complains of pain in chest Pain does not radiate. Pain: Pain began suddenly, 2-3 days ago. Neuro: Level of Consciousness is awake, alert, obeys commands, Oriented to person, place, time, situation. Cardiovascular: Rhythm is regular. Respiratory: Airway is patent. GI: No signs and/or symptoms were reported involving the gastrointestinal system. : No signs and/or symptoms were reported regarding the genitourinary system. EENT: No signs and/or symptoms were reported regarding the EENT system. Derm: Skin is intact. 16:03 Reassessment: Patient appears in no apparent distress at this time. No changes from rv previously documented assessment. Patient and/or family updated on plan of care and expected duration. Pain level reassessed. Patient is alert, oriented x 3, equal unlabored respirations, skin warm/dry/pink. 17:26 Reassessment: Patient appears in no apparent distress at this time. Patient and/or rv family updated on plan of care and expected duration. Pain level reassessed. Patient is alert, oriented x 3, equal unlabored respirations, skin warm/dry/pink. Patient denies pain at this time. Patient states feeling better. Vital Signs: 14:45 BP 123 / 70; Pulse 96; Resp 16; Temp 97.1; Pulse Ox 99% on R/A; Weight 77.11 kg; Height la1 5 ft. 9 in. (175.26 cm); 15:00 BP 141 / 72 LA Supine; Pulse 76; Resp 15 S; Pulse Ox 97% on R/A; rv 15:30 BP 151 / 74 LA Supine; Pulse 74; Resp 17 S; Pulse Ox 98% on R/A; rv 16:00 BP 131 / 83 LA; Pulse 75; Resp 17 S; Pulse Ox 97% on R/A; rv 16:30 BP 148 / 82 LA; Pulse 72; Resp 17 S; Pulse Ox 96% on R/A; rv 17:00 BP 146 / 85 LA Supine; Pulse 70; Resp 15 S; Pulse Ox 97% on R/A; rv 18:00 BP 146 / 84 LA Supine; Pulse 74; Resp 17 S; Pulse Ox 99% on R/A; rv 19:00 BP 135 / 82 LA Supine; Pulse 85; Resp 18 S; Pulse Ox 99% on R/A; rv 14:45 Body Mass Index 25.10 (77.11 kg, 175.26 cm) la1 ED Course: 14:37 Patient arrived in ED. rg4 14:37 Raymundo Morrison MD is Private Physician. rg4 14:45 Triage completed. la1 14:45 Arm band placed on left wrist. la1 14:55 EKG done, by ED staff, reviewed by Ry ANDREWS. rv 14:57 Ry Thomas PA is PHCP. cp 14:57 Gavino Whitt MD is Attending Physician. cp 14:57 Louis Dent, CATHY is Primary Nurse. rv 14:58 Patient has correct armband on for positive identification. Placed in gown. Bed in low rv position. Call light in reach. Side rails up X 1. Adult w/ patient. quality assurance monitor on. Pulse ox on. NIBP on. 14:59 Patient maintains SpO2 saturation greater than 95% on room air. rv 15:10 Inserted saline lock: 20 gauge in right antecubital area, using aseptic technique. rv Blood collected. 15:28 XRAY Chest (1 view) Sent. rv 15:28 Basic Metabolic Panel Sent. rv 15:28 CBC with Diff Sent. rv 15:28 LFT's Sent. rv 15:28 Magnesium Sent. rv 15:29 NT PRO-BNP Sent. rv 15:29 PT-INR Sent. rv 15:29 Troponin (emerg Dept Use Only) Sent. rv 15:33 XRAY Chest (1 view) In Process Unspecified. EDMS 16:43 Georgiana Clayton MD is Hospitalizing Provider. cp 17:29 US Abdomen Limited In Process Unspecified. EDMS 19:29 No provider procedures requiring assistance completed. Patient admitted, IV remains in rv place. Administered Medications: 15:58 Drug: Aspirin Chewable Tablet 324 mg Route: PO; rv 17:11 Follow up: Response: No adverse reaction rv 15:58 Drug: morphine 2 mg Route: IVP; Site: right antecubital; rv 17:10 Follow up: Response: Pain is decreased rv 15:58 Drug: Zofran 4 mg Route: IVP; Site: right antecubital; rv 17:10 Follow up: Response: No adverse reaction rv Outcome: 16:44 Decision to Hospitalize by Provider. cp 19:37 Admitted to Med/surg accompanied by tech, via wheelchair, room 220, with chart, Report rv called to MULU MORGAN 19:37 Condition: good 19:37 Discharge instructions given to patient, family, Instructed on the need for admit, Demonstrated understanding of instructions. 19:46 Patient left the ED. rv Signatures: Dispatcher [employer] EDMS Mihai Whitfield, RN RN la1 Ry Thomas PA PA Renita Craig rg4 Louis Dent RN RN rv
--- NOTE | 2018-07-27 17:48 | RAD REPORT ---
EXAM DESCRIPTION: US - Abdomen Exam Limited - 07/27/2018 5:29 pm CLINICAL HISTORY: Abdominal pain. COMPARISON: November 2017 FINDINGS: The gallbladder wall is not thickened. A gallstone is not seen. The biliary tree is normal caliber. IMPRESSION: Unremarkable gallbladder ultrasound.
[2018-07-28 06:00] LABS: Urine Appearance CLEAR; Urine Bilirubin NEGATIVE (NEG); Urine Blood NEGATIVE (NEG); Urine Color YELLOW; Urine Glucose NEGATIVE (NEG); Urine Protein NEGATIVE (NEG); Urine Specific Gravity 1.015 (1.005-1.030); Urine pH 5.5 (5.0-7.0)
[2018-07-28 06:02] LABS: Absolute Lymphocytes (CBC) 1.7 K/uL (0.7-4.9); Absolute Monocytes 0.6 K/uL (0.1-1.3); Absolute Neutrophil 3.5 K/uL (1.8-8.0); Basophils % 0.9 % (0-1.3); Hematocrit 40.2 % (39.6-49.0); MPV 9.9 fL (7.6-11.3); Monocytes % 8.8 % (3.3-12.3); RBC Red Blood Cell Count 4.01 M/uL (4.33-5.43)
[2018-07-28 06:04] LABS: Urine Microscopic Reflex NO UMIC
[2018-07-28] MEDS ORDERED: ALPRAZOLAM 0.25 MG TABLET PO PRN (06:10)
[2018-07-28 06:22] LABS: Bilirubin Total 0.5 mg/dL (0.2-1.0); Potassium 4.6 mmol/L (3.5-5.1)
[2018-07-28] MEDS: NA CHLORIDE 0.9% 1,000 ML IV SCH ×2 (06:24→20:20)
[2018-07-28] MEDS ORDERED: ENOXAPARIN 40 MG/0.4 ML SQ SCH (09:00)
[2018-07-28] MEDS: ASPIRIN EC 81 MG TAB PO SCH (09:32)
[2018-07-28] MEDS: METOPROLOL TAR 50 MG TAB PO SCH ×2 (09:32→22:18)
--- NOTE | 2018-07-28 09:33 | P.HP ---
Certification for Inpatient Patient admitted to: Observation With expected LOS: <2 Midnights Patient will require the following post-hospital care: None Practitioner: I am a practitioner with admitting privileges, knowledge of patient current condition, hospital course, and medical plan of care. Services: Services provided to patient in accordance with Admission requirements found in Title 42 Section 412.3 of the Code of Federal Regulations Patient History Date of Service: 07/27/18 Reason for admission: Chest pain rule out acute coronary syndrome History of Present Illness: Patient is a 70-year-old gentleman came into the hospital with chest discomfort. Pain was mainly in the substernal region. It radiated to his left arm. Patient is also short of breath. Patient has multiple medical problems including a history of hypertension and a prior history of coronary artery disease status post CABG. His renal function is elevated as is his liver enzymes. We may need to back off on his statin. Will look for other causes as well including checking a hepatitis profile. As patient's gallbladder ultrasound was negative. As we may need to do a dedicated liver ultrasound this was not included. At this time patient is doing much better. He is no longer having chest pain. Will consult Cardiology because of his prior risks. He will be admitted to the hospital for observation. Allergies No Known Allergies Allergy (Verified 07/27/18 22:33) Home Medications: Allopurinol 300 mg PO DAILY 07/27/18 Amlodipine [Norvasc*] 1 tab PO DAILY 07/27/18 Cyanocobalamin (Vitamin B-12) [Vitamin B12] 5,000 mcg PO DAILY 07/27/18 Docusate Sodium 1 tab PO Q2D 07/27/18 Ferrous Sulfate [Iron] 1 tab PO BEDTIME 07/27/18 Fish Oil [place] 3 600 mg PO BID 07/27/18 Folic Acid 2 tab PO DAILY 07/27/18 Levothyroxine [Synthroid*] 1 tab PO DAILY 07/27/18 Memantine HCl [Namenda Xr] 1 tab PO DAILY 07/27/18 Metoprolol Tartrate 1 tab PO DAILY 07/27/18 Omeprazole 333mg 1 tab PO DAILY 07/27/18 Pnv No.95/Ferrous Fum/Folic AC [ Multivitamin Tablet] 1 each PO DAILY Rivastigmine Patch [Exelon 4.6 mg Patch*] 1 patch TOP DAILY 07/27/18 Simvastatin 40 mg PO DAILY 07/27/18 - Past Medical/Surgical History Has patient received pneumonia vaccine in the past: Yes Diabetic: No -: Alzheimer's -: CAD -: Gout -: Hypertension -: CABG - Family History Father Medical History: Heart disease - Social History Smoking Status: Former smoker Alcohol use: Yes CD- Drugs: No Caffeine use: Yes Place of Residence: Home Review of Systems 10-point ROS is otherwise unremarkable Physical Examination - Vital Signs Temperature: 97.2 F Blood Pressure: 126/66 Pulse: 72 Respirations: 15 Pulse Ox (%): 99 - Physical Exam General: Alert, In no apparent distress, Oriented x3 HEENT: Atraumatic, PERRLA, Mucous membr. moist/pink, EOMI, Sclerae nonicteric Neck: Supple, 2+ carotid pulse no bruit, No LAD, Without JVD or thyroid abnormality Respiratory: Clear to auscultation bilaterally, Normal air movement Cardiovascular: Regular rate/rhythm, Normal S1 S2, No murmurs Gastrointestinal: Normal bowel sounds, Soft and benign, Non-distended, No tenderness Musculoskeletal: No clubbing, No swelling, No tenderness Integumentary: No rashes Neurological: Normal gait, Normal speech, Normal strength at 5/5 x4 extr, Normal tone, Sensation intact, Cranial nerves 3-12 intact, Normal affect Lymphatics: No axilla or inguinal lymphadenopathy - Studies Laboratory Data (last 24 hrs) 07/27/18 15:15: PT 13.0 H, INR 1.11 07/27/18 15:15: WBC 8.7 D, Hgb 13.5 L, Hct 40.7, Plt Count 183 07/27/18 15:15: Sodium 138, Potassium 4.3, BUN 31 H, Creatinine 2.00 H, Glucose 123 H, Magnesium 2.1, Total Bilirubin 0.5, AST 128 H, ALT 192 H, Alkaline Phosphatase 104 Assessment & Plan - Problems (Diagnosis) (1) Chest pain, rule out acute myocardial infarction Current Visit: Yes Status: Acute (2) History of coronary artery bypass graft Current Visit: Yes Status: Acute (3) Acute kidney injury Current Visit: Yes Status: Acute (4) Elevated liver enzymes Current Visit: Yes Status: Acute - Plan 1. Serial troponins and EKG 2. Cardiology consultation 3. Echocardiogram and inpatient stress test 4. Anti-platelet therapy, anti coagulation, beta-pa, statin, and O2 as needed 5. IV morphine for pain 6. IV hydration 7. GI and DVT prophylaxis - Advance Directives Does patient have a Living Will: Yes Does patient have a Durable POA for Healthcare: Yes - Code Status/Comfort Care Code Status Assessed: Yes Code Status: Full Code Critical Care: No Time Spent Managing PTS Care (In Minutes): 45
--- NOTE | 2018-07-28 09:37 | P.PN ---
Subjective Date of Service: 07/28/18 Chief Complaint: Chest pain rule out acute coronary syndrome Patient's chest pain is improved. His Cardiology recommending stress test in the morning. Patient with multiple risk factors including history of CABG. He did have significant shortness of breath associated with chest pain. Since he has been resting his chest pain has been alleviated. Will evaluate stress test prior to discharge in the morning. If this is negative he should be able to go home tomorrow morning. Review of Systems 10-point ROS is otherwise unremarkable Physical Examination - Vital Signs Temperature: 97.2 F Blood Pressure: 126/66 Pulse: 72 Respirations: 15 Pulse Ox (%): 99 - Physical Exam General: Alert, In no apparent distress, Oriented x3 HEENT: Atraumatic, PERRLA, EOMI Neck: Supple, JVD not distended Respiratory: Clear to auscultation bilaterally, Normal air movement Cardiovascular: Regular rate/rhythm, Normal S1 S2 Gastrointestinal: Normal bowel sounds, Soft and benign, Non-distended, No tenderness Musculoskeletal: No clubbing, No swelling, No tenderness Neurological: Normal speech, Normal tone, Sensation intact, Cranial nerves 3-12 intact, Normal affect - Studies Laboratory Data (last 24 hrs) 07/27/18 15:15: PT 13.0 H, INR 1.11 07/27/18 15:15: WBC 8.7 D, Hgb 13.5 L, Hct 40.7, Plt Count 183 07/27/18 15:15: Sodium 138, Potassium 4.3, BUN 31 H, Creatinine 2.00 H, Glucose 123 H, Magnesium 2.1, Total Bilirubin 0.5, AST 128 H, ALT 192 H, Alkaline Phosphatase 104 Medications List Reviewed: Yes Assessment & Plan - Problems (Diagnosis) (1) Chest pain, rule out acute myocardial infarction Current Visit: Yes Status: Acute (2) History of coronary artery bypass graft Current Visit: Yes Status: Acute (3) Acute kidney injury Current Visit: Yes Status: Acute (4) Elevated liver enzymes Current Visit: Yes Status: Acute - Plan Continue with current plan of care. 1. Serial troponins and EKG Did not indicate acute abnormality. Patient with multiple risk factors so will need further testing prior to being comfortable with discharging him home. 2. Cardiology consultation appreciated 3. Echocardiogram and inpatient stress test in a.m. 4. Anti-platelet therapy, anti coagulation, beta-pa, statin, and O2 as needed 5. IV morphine for pain 6. IV hydration; recheck renal function in the morning as well as liver enzymes 7. GI and DVT prophylaxis Discharge Plan: Home Plan to discharge in: 24 Hours - Advance Directives Does patient have a Living Will: Yes Does patient have a Durable POA for Healthcare: Yes - Code Status/Comfort Care Code Status: Full Code Critical Care: No Time Spent Managing PTS Care (In Minutes): 30
[2018-07-28] MEDS ORDERED: DOCUSATE NA 100 MG CAP PO SCH (10:00)
[2018-07-28] MEDS: FISH OIL OMEGA PO SCH (21:00)
[2018-07-28] MEDS ORDERED: ATORVASTATIN 20 MG TAB PO SCH (21:00)
[2018-07-28] MEDS ORDERED: FERROUS SULFATE 325 MG TAB PO SCH (21:00)
--- NOTE | 2018-07-28 22:22 | RAD REPORT ---
EXAM DESCRIPTION: US - UPPER EXTREMITY VENOUS UNILATE - 07/28/2018 9:42 pm CLINICAL HISTORY: Left Forearm swelling Upper extremity swelling COMPARISON: No comparisonsNo comparisons FINDINGS: Left upper extremity venous system was interrogated with Doppler technique. Normal flow, c ompressibility and augmentation was noted. There is no DVT present. IMPRESSION: No evidence of left upper extremity deep venous thrombosis.
--- NOTE | 2018-07-29 00:15 | CON ---
Date of Consultation: 07/28/[address] Clayton's service on 07/27/2018. I saw him on 07/28/2018. Reason For Consultation: Chest pain. History Of Present Illness: Mr. Gray is a 78-year-old male, has a history of Alzheimer's, coronar y artery disease, status post CABG. He has a history of gout. He has a history of cerebrovascular d isease that is moderate with a right carotid stenosis of 60% in 2015. He has a history of hypertensi on, dyslipidemia. He came in with chest pain, atypical, sharp. No shortness of breath or other symp toms. Denies PND, orthopnea, pedal edema, palpitations, or syncope. Allergies: NONE. Review of Systems: Negative. Social History: Negative. Family History: Negative. Medications: At home include Zocor, allopurinol, Norvasc, metoprolol, Namenda, Prilosec, and Lexapro . Physical Examination: General: Mr. Gray was definitely in no acute distress. Vital Signs: Stable. He was afebrile, but he does have signs of dementia. He was slow to respond t o questions, but he was definitely alert, oriented to name and place. HEENT: Negative. Neck: Supple without any bruit, lymphadenopathy, JVD, or thyromegaly. Chest: Clear to auscultation and percussion. Cardiac: Regular rhythm and rate. No murmurs, gallops, or rubs. Abdomen: Benign. Extremities: No clubbing, cyanosis, or edema. Diagnostic Data: Chest x-ray was negative. EKG showed inferolateral ischemia. An ultrasound of the gallbladder was negative. Creatinine was 2.08. AST was 108, ALT was 182. Impression And Plan: 1.Atypical chest pain in a patient with history of coronary artery disease and coronary artery bypas s graft. An echocardiogram and Lexiscan have been ordered for tomorrow. 2.Elevated liver function test with a negative gallbladder ultrasound. I think we need to stop his Zocor. 3.Gout. 4.Hypertension. 5.Alzheimer's. 6.Gastroesophageal reflux disease. 7.Moderate cerebrovascular disease. He should probably have a carotid Doppler check sometime down t he road as an outpatient. We will see what the echo and Lexiscan show prior to making a final decisi on and definitely stop Zocor and check his liver function test down the road. ASHLYN/TATUM Voice ID: [id number] Report ID: [id number]
[2018-07-29] MEDS ORDERED: LORazepam 2 MG/ML VIAL IM ONE (02:14)
[2018-07-29] MEDS ORDERED: MORPHINE 4 MG/ML SYR IM STA (03:22)
--- NOTE | 2018-07-29 05:56 | EKG ---
Test Date: 2018-07-27 Test Time: 14:51:26 Supervisor Warping Department: MEASUREMENT RESULTS: Intervals: Rate: 79 GA: 188 QRSD: 108 QT: 394 QTc: 451 Billings: P: 70 GA: 188 QRS: -58 T: 255 INTERPRETIVE STATEMENTS: Normal sinus rhythm Left axis deviation ST & T wave abnormality, consider inferior ischemia ST & T wave abnormality, consider anterolateral ischemia Abnormal ECG Compared to ECG 07/24/2018 13:43:58 Left-axis deviation now present Myocardial infarct finding no longer present ST (T wave) deviation still present Possible ischemia still present Electronically Signed On 07-29-18 05:55:03 CDT by Brodie Romeo
[2018-07-29] MEDS ORDERED: PANTOPRAZOLE 40MG TABLET PO SCH (06:30)
[2018-07-29] MEDS ORDERED: LEVOTHYROXINE SOD 0.05 MG TABLET PO SCH (06:30)
[2018-07-29 08:18] LABS: Absolute Lymphocytes (CBC) 1.8 K/uL (0.7-4.9); Absolute Monocytes 0.6 K/uL (0.1-1.3); Absolute Neutrophil 3.5 K/uL (1.8-8.0); Eosinophils % 13.3 % (0-4.4); Hematocrit 39.3 % (39.6-49.0); MPV 9.6 fL (7.6-11.3); Monocytes % 8.5 % (3.3-12.3)
[2018-07-29 08:50] LABS: Bilirubin Direct 0.2 mg/dL (0-0.2); Bilirubin Total 0.4 mg/dL (0.2-1.0); Magnesium 2.4 mg/dL (1.8-2.4); Phosphorus 4.1 mg/dL (2.5-4.9); Potassium 4.7 mmol/L (3.5-5.1)
[2018-07-29] MEDS ORDERED: [UNRECOGNIZED DRUG - REMARK] PO SCH (09:00)
[2018-07-29] MEDS ORDERED: HOME MED 1 EA UNK (Cyanocobalamin (Vitamin B-12) [Vitamin B12] 5,000 MCG) PO SCH (09:00)
[2018-07-29] MEDS: METOPROLOL TAR 50 MG TAB PO SCH (09:00)
[2018-07-29] MEDS ORDERED: OMEPRAZOLE PO SCH (09:00)
[2018-07-29] MEDS ORDERED: MEMANTINE HCL PO SCH (09:00)
[2018-07-29] MEDS ORDERED: ALLOPURINOL 300 MG TAB PO SCH (09:00)
[2018-07-29] MEDS: FISH OIL OMEGA PO SCH (09:00)
[2018-07-29] MEDS ORDERED: FOLIC ACID 1 MG TABLET PO SCH (09:00)
[2018-07-29] MEDS ORDERED: RIVASTIGMINE 4.6 MG/24 HR PATCH TD SCH (09:00)
[2018-07-29] MEDS ORDERED: AMLODIPINE 5 MG TAB PO SCH (09:00)
[2018-07-29] MEDS ORDERED: FOLIC ACID PO SCH (09:00)
[2018-07-29] MEDS ORDERED: ENOXAPARIN 30 MG/0.3 ML SQ SCH (09:00)
[2018-07-29] MEDS ORDERED: REGADENOSON 0.4 MG/5 ML SYR IV ONE (09:03)
[2018-07-29] MEDS: NA CHLORIDE 0.9% 1,000 ML IV SCH (09:40)
[2018-07-29] MEDS: ASPIRIN EC 81 MG TAB PO SCH (10:30)
--- NOTE | 2018-07-29 14:18 | RAD REPORT ---
EXAM DESCRIPTION: NM - Rest Stress Cardiac Imaging - 07/29/2018 2:04 pm CLINICAL HISTORY: CP Chest pain. COMPARISON: No comparisons TECHNIQUE: The patient was administered approximately 10mCi of Tc 99m Sestamibi prior to resting SPE CT imaging of the heart. The patient was then administered approximately 30 mCi of Tc 99m Sestamibi f ollowing exercise or pharmacologic stress. Multiplanar SPECT images were reviewed. FINDINGS: No stress induced ischemic defect is seen to suggest stress induced ischemia. No fixed def ect is seen to suggest hibernating myocardium or scarred myocardium. The end diastolic volume is 71 ml, the end systolic volume is 32 ml, and the ejection fraction is 54 %. IMPRESSION: No stress induced ischemia.
--- NOTE | 2018-07-29 14:53 | P.DS ---
Admission Date: 07/27/18 Discharge Date: 07/29/18 Primary Care Provider: Dr. Morrison Disposition: ROUTINE DISCHARGE Discharge Condition: GOOD Reason for Admission: Chest pain rule out acute coronary syndrome Consultations: Cardiology-Dr. Blood Procedures: Cardiac stress test: COMPARISON: No comparisons TECHNIQUE: The patient was administered approximately 10mCi of Tc 99m Sestamibi prior to resting SPECT imaging of the heart. The patient was then administered approximately 30 mCi of Tc 99m Sestamibi following exercise or pharmacologic stress. Multiplanar SPECT images were reviewed. FINDINGS: No stress induced ischemic defect is seen to suggest stress induced ischemia. No fixed defect is seen to suggest hibernating myocardium or scarred myocardium. The end diastolic volume is 71 ml, the end systolic volume is 32 ml, and the ejection fraction is 54 %. IMPRESSION: No stress induced ischemia. ABUS: COMPARISON: November 2017 FINDINGS: The gallbladder wall is not thickened. A gallstone is not seen. The biliary tree is normal caliber. IMPRESSION: Unremarkable gallbladder ultrasound. Venous doppler: COMPARISON: No comparisonsNo comparisons FINDINGS: Left upper extremity venous system was interrogated with Doppler technique. Normal flow, compressibility and augmentation was noted. There is no DVT present. IMPRESSION: No evidence of left upper extremity deep venous thrombosis. Medical Problem List: Atypical chest pain with history of CAD and CABG likely GERD Elevated liver function likely related to statin medication Gout Hypertension Alzheimer's dementia Moderate cerebrovascular disease Chronic renal disease, stage III Iron and B12 deficiency Brief History of Present Illness: 70-year-old male with multiple medical problems came to the emergency room with chest pain. Patient with history of Alzheimer's dementia, CAD with prior CABG and carotid arterial disease. Patient was admitted for further evaluation. Hospital Course: Patient presented with atypical chest pain. Patient with prior history of CAD and CABG. Patient seen and evaluated by Cardiology. Cardiac stress test showed no stress-induced ischemia. No further intervention required. At discharge patient will continue with aspirin 81 mg daily. Recommend to follow up with cardiology in 2-4 weeks to follow up this hospitalization. Atypical chest pain likely related to GERD. At discharge patient will continue with Protonix 40 mg daily. Recommend to follow up with GI as an outpatient to further evaluate. Patient may require EGD. Recommend no further use of nonsteroidal anti-inflammatories. Continue with a GERD diet. Patient with gout. Patient will continue with his medication-allopurinol daily. Patient with elevated liver function. Abdominal ultrasound unremarkable. This is likely related to his statin medication. At discharge will recommend to discontinue Zocor. Hepatitis panel pending at discharge. This can be followed up by his PCP. Patient with hypertension. Medications adjusted during his stay. This has remained stable. Patient will continue with medications-Norvasc 5 mg daily and metoprolol 25 mg 1 pill twice daily. Recommend to maintain blood pressures less 150/80. Further adjustment can be done by his PCP. Patient with Alzheimer's dementia. Patient will continue his medications- Namenda and Exelon. Recommend to follow up with neurology as an outpatient to further address. Patient with carotid arterial disease. Recommend for recheck carotid Doppler in the future to further evaluate. Statin medication discontinued due to his abnormal liver function tests. Recommended continued aspirin 81 mg daily. Patient with hypothyroidism. Patient will continue with his medication levothyroxine daily. Recommend to recheck tsh and free T4 in 4-6 weeks. Patient with chronic renal disease, stage III. Recommend to recheck lab-BMP in 2-4 weeks to monitor his progress. Recommend no further use of nonsteroidal anti-inflammatories due to his renal function. Future medications will need to be renally dosed. Recommend for follow up with Nephrology to further monitor and address. Vital Signs/Physical Exam: Temp Pulse Resp BP Pulse Ox 97 F 61 18 142/82 H 96 07/29/18 12:00 07/29/18 12:00 07/29/18 12:00 07/29/18 12:00 07/29/18 12:00 General: Alert, Demented HEENT: Atraumatic Neck: Supple Respiratory: Clear to auscultation bilaterally, Normal air movement Cardiovascular: Normal pulses, Regular rate/rhythm Gastrointestinal: Normal bowel sounds, Soft and benign, Non-distended, No tenderness, No masses, No rebound, No guarding Musculoskeletal: No erythema, No tenderness, No warmth Integumentary: No tenderness/swelling, No erythema, No warmth, No cyanosis Neurological: Dementia Laboratory Data at Discharge: WBC 6.9 K/uL (4.3-10.9) 07/29/18 07:48 Hgb 13.1 g/dL (13.6-17.9) L 07/29/18 07:48 Hct 39.3 % (39.6-49.0) L 07/29/18 07:48 Plt Count 171 K/uL (152-406) 07/29/18 07:48 PT 13.0 SECONDS (9.5-12.5) H 07/27/18 15:15 INR 1.11 07/27/18 15:15 Sodium 139 mmol/L (136-145) 07/29/18 07:48 Potassium 4.7 mmol/L (3.5-5.1) 07/29/18 07:48 BUN 34 mg/dL (7-18) H 07/29/18 07:48 Creatinine 1.98 mg/dL (0.55-1.3) H 07/29/18 07:48 Glucose 105 mg/dL (74-106) 07/29/18 07:48 Phosphorus 4.1 mg/dL (2.5-4.9) 07/29/18 07:48 Magnesium 2.4 mg/dL (1.8-2.4) 07/29/18 07:48 Total Bilirubin 0.4 mg/dL (0.2-1.0) 07/29/18 07:48 AST 132 U/L (15-37) H 07/29/18 07:48 ALT 210 U/L (12-78) H 07/29/18 07:48 Alkaline Phosphatase 95 U/L (45-117) 07/29/18 07:48 Troponin I < 0.02 ng/mL (0.0-0.045) 07/28/18 10:05 Home Medications: Allopurinol 300 mg PO DAILY 07/27/18 Amlodipine [Norvasc*] 1 tab PO DAILY 07/27/18 Cyanocobalamin (Vitamin B-12) [Vitamin B12] 5,000 mcg PO DAILY 07/27/18 Docusate Sodium 1 tab PO Q2D 07/27/18 Ferrous Sulfate [Iron] 1 tab PO BEDTIME 07/27/18 Fish Oil Alvo 3 600 mg PO BID 07/27/18 Folic Acid 2 tab PO DAILY 07/27/18 Levothyroxine [Synthroid*] 1 tab PO DAILY 07/27/18 Memantine HCl [Namenda Xr] 1 tab PO DAILY 07/27/18 Metoprolol Tartrate 1 tab PO DAILY 07/27/18 Pnv No.95/Ferrous Fum/Folic AC [ Multivitamin Tablet] 1 each PO DAILY Rivastigmine Patch [Exelon 4.6 mg Patch*] 1 patch TOP DAILY 07/27/18 Levothyroxine [Synthroid*] 0.05 mg PO DAILYAC tablet 07/29/18 Metoprolol Tartrate [Lopressor*] 25 mg PO BID #60 tab 07/29/18 Pantoprazole [Protonix Tab*] 40 mg PO DAILYAC #30 tab 07/29/18 New Medications: Pantoprazole [Protonix Tab*] 40 mg PO DAILYAC #30 tab Patient Discharge Instructions: 1. Patient will need to follow with a PCP within 1 week to follow this hospitalization. 2. Patient presented with atypical chest pain. Patient with prior history of CAD and CABG. Patient seen and evaluated by Cardiology. Cardiac stress test showed no stress-induced ischemia. No further intervention required. At discharge patient will continue with aspirin 81 mg daily. Recommend to follow up with cardiology in 2- 4 weeks to follow up this hospitalization. 3. Atypical chest pain likely related to GERD. At discharge patient will continue with Protonix 40 mg daily. Recommend to follow up with GI as an outpatient to further evaluate. Patient may require EGD. Recommend no further use of nonsteroidal anti-inflammatories. Continue with a GERD diet. 4. Patient with gout. Patient will continue with his medication-allopurinol daily. 5. Patient with elevated liver function. Abdominal ultrasound unremarkable. This is likely related to his statin medication. At discharge will recommend to discontinue Zocor. Hepatitis panel pending at discharge. This can be followed up by his PCP. 6. Patient with hypertension. Medications adjusted during his stay. This has remained stable. Patient will continue with medications-Norvasc 5 mg daily and metoprolol 25 mg 1 pill twice daily. Recommend to maintain blood pressures less 150/80. Further adjustment can be done by his PCP. 7. Patient with Alzheimer's dementia. Patient will continue his medications- Namenda and Exelon. Recommend to follow up with neurology as an outpatient to further address. 8. Patient with carotid arterial disease. Recommend for recheck carotid Doppler in the future to further evaluate. Statin medication discontinued due to his abnormal liver function tests. Recommended continued aspirin 81 mg daily. 9. Patient with hypothyroidism. Patient will continue with his medication levothyroxine daily. Recommend to recheck tsh and free T4 in 4-6 weeks. 10. Patient with chronic renal disease, stage III. Recommend to recheck lab-BMP in 2-4 weeks to monitor his progress. Recommend no further use of nonsteroidal anti-inflammatories due to his renal function. Future medications will need to be renally dosed. Recommend for follow up with Nephrology to further monitor and address. Diet: AHA Activity: Fall precautions Time spent managing pt's care (in minutes): 55
--- NOTE | 2018-07-30 08:10 | ECHO ---
HEIGHT: 5 ft 9 in WEIGHT: 167 lb 6.4 oz DATE OF STUDY: 07/29/[address]: Yash Blood MD 2-DIMENSIONAL: YES M.MODE: YES DOPPLER: YES COLOR FLOW: YES TDS: YES PORTABLE: NO DEFINITY: NO BUBBLE STUDY: NO DIAGNOSIS: CHEST PAIN CARDIAC HISTORY: CATHERIZATION: NO SURGERY: YES PROSTHETIC VALVE: NO PACEMAKER: NO MEASUREMENTS (cm) DIASTOLIC (NORMALS) SYSTOLIC (NORMALS) IVSd 1.2 (0.6-1.2) LA Diam 4.0 (1.9-4.0) LVEF 63% LVIDd 3.6 (3.5-5.7) LVIDs 2.4 (2.0-3.5) %FS 33% LVPWd 1.5 (0.6-1.2) Ao Diam 3.0 (2.0-3.7) 2 DIMENSIONAL ASSESSMENT: RIGHT ATRIUM: NORMAL LEFT ATRIUM: DILATED RIGHT VENTRICLE: NORMAL LEFT VENTRICLE: LEFT VENTRICULAR HYPERTROPHY TRICUSPID VALVE: NORMAL MITRAL VALVE: NORMAL PULMONIC VALVE: NORMAL AORTIC VALVE: 3 LEAFLET, SCLEROSIS PERICARDIAL EFFUSION: NONE AORTIC ROOT: NORMAL LEFT VENTRICULAR WALL MOTION: PARADOXICAL SEPTAL MOTION. DOPPLER/COLOR FLOW: MILD AORTIC, MITRAL AND TRICUSPID REGURGITATION. NO AORTIC STENOSIS. NORMAL RIGHT VENTRICULAR SYSTOLIC PRESSURE. IMPAIRED LEFT VENTRICULAR RELAXATION. COMMENTS: NORMAL LEFT VENTRICULAR EJECTION FRACTION WITH PARADOXICAL SEPTAL MOTION. DILATED LEFT ATRIUM. LEFT VENTRICULAR HYPERTROPHY. AORTIC SCLEROSIS WITH NO AORTIC STENOSIS. MILD AORTIC, MITRAL AND TRICUSPID REGURGITATION. IMPAIRED LEFT VENTRICULAR RELAXATION. TECHNOLOGIST: Conchis YANCEY
--- NOTE | 2018-07-30 08:15 | TREADPHA ---
DX: CHEST PAIN Date of Study: 07/29/2018 Ht: 5 9 Wt: 167 lb 6.4 oz Consulting Physician: ANUSHKA MEDICATIONS: ZYLOPRIM, NORVASC, ASPIRIN, LIPITOR, LOVENOX, FEOSOL HISTORY: 78 YEAR OLD MALE WITH COMPLAINTS OF CHEST PAIN. HISTORY OF ALZHEIMERS, CORONARY ARTERY DISEASE, GOUT, HYPERTENSION, NON SMOKER, OCCASIONAL DRINKER. PHYSICIAL EXAMINATION: RESTING B.P.: 160/87 RESTING H.R.: 61 RESTING EKG: SINUS, NON SPECIFIC ST WITH T ABNORMALITY. PROTOCOL: LEXISCAN EXERCISE TIME: 3:30 B.P. AT [place] STRESS: 114/79 IMPRESSION: LEXISCAN INJECTED, FOLLOWED BY CARDIOLITE PER PROTOCOL, SEE NUCLEAR MEDICINE REPORT. NO SUPRAVENTRICULAR TACHYCARDIA, VENTRICULAR TACHYCARDIA, PREMATURE ATRIAL COMPLEXES OR PREMATURE VENTRICULAR COMPLEXES. PATIENT REPORTED NO CHEST PAIN. NON DIAGNOSTIC EKG WITH LEXISCAN STRESS.
[2018-08-03 03:43] LABS: HBsAG Nonreactive (Nonreactive); Hepatitis A IgM Antibody Nonreactive
== END 2018-07-29 16:59 | disposition home or self-care (01) ==
LOC: ER 14:35 → ERHOLD 17:55 → 2ND 19:38
PROVIDERS: ADMIT Family Medicine; ATTEND Hospitalist
DX: R07.89 Other chest pain (principal); I25.10 Atherosclerotic heart disease of native coronary artery without angina pectoris; R74.8 Abnormal levels of other serum enzymes; M10.9 Gout, unspecified; G30.9 Alzheimer's disease, unspecified; F02.80 Dementia in other diseases classified elsewhere, unspecified severity, without behavioral disturbance, psychotic disturbance, mood disturbance, and anxiety; I12.9 Hypertensive chronic kidney disease with stage 1 through stage 4 chronic kidney disease, or unspecified chronic kidney disease; N18.3 Chronic kidney disease, stage 3 (moderate); E53.8 Deficiency of other specified B group vitamins; I77.89 Other specified disorders of arteries and arterioles; E03.9 Hypothyroidism, unspecified; Z95.1 Presence of aortocoronary bypass graft
CPT/HCPCS: 93005; 93017; 93306; 85025 ×3; 80048; 36415 ×2; 83735 ×2; 84100; 85610; 80076; 81003; 82248; 84484 ×4; 80053 ×2; 83880; 80074; 71045; 93971; 76705; 78452; 96375; 96374; 99285; J1940; J1650 ×2; J2270; J2785; J7030; J2405; A9500; G0378 ×2

== ENCOUNTER 2019-04-16 18:11 | Observation (INO) | payer OTHER ==
[2019-04-16 19:40] LABS: Absolute Lymphocytes (CBC) 1.7 K/uL (0.7-4.9); Basophils % 1.1 % (0-1.3); Hematocrit 42.6 % (39.6-49.0); Lymphocytes % 18.3 % (15.3-44.8); MPV 9.5 fL (7.6-11.3); RBC Red Blood Cell Count 4.32 M/uL (4.33-5.43)
[2019-04-16 19:45] LABS: Protime INR 1.04
--- NOTE | 2019-04-16 19:52 | RAD REPORT ---
EXAM DESCRIPTION: RAD - Chest Single View - 04/16/2019 7:41 pm CLINICAL HISTORY: Hypertension, dizziness COMPARISON: July 2018 TECHNIQUE: AP portable chest image was obtained 1938 hours . FINDINGS: Lungs are clear. Heart and vasculature are normal. No measurable pleural effusion and no p neumothorax. No acute bony abnormality seen. No acute aortic findings suspected. IMPRESSION: No acute cardiopulmonary process. No significant change comparison.
[2019-04-16 19:59] LABS: ALT/SGPT 108 U/L (12-78); AST/SGOT 47 U/L (15-37); Albumin 3.9 g/dL (3.4-5.0); Alkaline Phosphatase 86 U/L (45-117); BUN Blood Urea Nitrogen 24 mg/dL (7-18); Bicarbonate 26 mmol/L (21-32); Bilirubin Direct 0.1 mg/dL (0-0.2); Bilirubin Total 0.3 mg/dL (0.2-1.0); Glucose Level 107 mg/dL (74-106); Magnesium 2.3 mg/dL (1.8-2.4); NT PRO-BNP 891 pg/mL (<450); Potassium 4.7 mmol/L (3.5-5.1); Protein, Total 8.4 g/dL (6.4-8.2); Sodium Level 139 mmol/L (136-145); Troponin (Emerg Dept Use Only) < 0.02 ng/mL (0.0-0.045)
--- NOTE | 2019-04-16 20:14 | RAD REPORT ---
EXAM DESCRIPTION: CT - Head Brain Wo Cont - 04/16/2019 7:51 pm CLINICAL HISTORY: Hypertension, nausea, dizziness COMPARISON: CT May 2016 TECHNIQUE: Axial 5 mm thick images of the head were obtained without IV contrast. All CT scans are performed using dose optimization technique as appropriate and may include automated exposure control or mA/KV adjustment according to patient size. FINDINGS: No intracranial hemorrhage, mass, edema or shift of mid-line structures. No acute cortical based infarction. No cortical edema or sulcal effacement. Moderate atrophy and chronic ischemic espitia ges are present. Arterial and physiologic calcifications are present. Ventricles do appear somewhat o ut of proportion to the amount of volume loss. However, the pattern is unchanged from 2017. Mastoid air cells and visualized portions of the paranasal sinuses are clear. No acute bony findings. IMPRESSION: Negative non-contrast CT head examination for acute finding. Above detailed findings are stable from May 2016.
--- NOTE | 2019-04-16 22:18 | ER ---
Nurse's Notes [facility]ly [facility] Name: Victor Hugo Gray Age: 78 yrs Sex: Male : 1940 Arrival Date: 04/16/2019 Time: 18:12 Bed 20 Private MD: Diagnosis: Uncontrolled Hypertension. Dizziness. Unsteady Gait Presentation: 04/16 18:26 Presenting complaint: Grandson reports pt was c/o nausea and dizziness, took his BP and sv it was 187/97. Transition of care: patient was not received from another setting of care. Onset of symptoms was April 16, 2019. Risk Assessment: Do you want to hurt yourself or someone else? Patient reports no desire to harm self or others. Care prior to arrival: None. 18:26 Method Of Arrival: Wheelchair sv 18:26 Acuity: NANETTE 2 sv 20:00 Initial Sepsis Screen: Does the patient meet any 2 criteria? No. Patient's initial fc sepsis screen is negative. Does the patient have a suspected source of infection? No. Patient's initial sepsis screen is negative. Historical: - Allergies: 18:30 No Known Allergies; sv - Home Meds: 18:30 Synthroid 50 mcg Oral tab 1 tab once daily [Active]; allopurinol 300 mg Oral tab 1 tab sv once daily [Active]; donepezil 10 mg oral tab 1 tab once daily [Active]; amlodipine 5 mg tab 1 tab once daily [Active]; bupropion HCl 150 mg Oral TbER 1 tab once daily [Active]; omeprazole 10 mg Oral cpDR once daily [Active]; Vitamin Oral tab 1 tab once daily [Active]; Vitamin B-12 5,000 mcg Oral daily [Active]; folic acid 300mg 2 tabs BID Oral tab once daily [Active]; docusate sodium 100 mg Oral cap 1 cap once daily [Active]; Iron CR Oral 325 mg twice a day [Active]; - PMHx: 18:30 Alzheimers; CAD; Gout; Hypertension; Thyroid problem; memory issues; Ulcers; sv - PSHx: 18:30 CABG; cardiac stents; sv - Immunization history:: Last tetanus immunization: unknown. - Social history:: Smoking status: Patient/guardian denies using tobacco. - Ebola Screening: : Patient negative for fever greater than or equal to 101.5 degrees Fahrenheit, and additional compatible Ebola Virus Disease symptoms Patient denies exposure to infectious person Patient denies travel to an Ebola-affected area in the 21 days before illness onset. Screenin:10 Abuse screen: Denies threats or abuse. Nutritional screening: No deficits noted. fc Tuberculosis screening: No symptoms or risk factors identified. Fall Risk Fall in past 12 months (25 points). Secondary diagnosis (15 points) Alzheimer's, No IV (0 pts). Ambulatory Aid- None/Bed Rest/Nurse Assist (0 pts). Gait- Impaired (20 pts.). Mental Status- Overestimates/Forgets Limitations (15 pts.). Total Alfonso Fall Scale indicates High Risk Score (45 or more points). Fall prevention measures have been instituted. Side Rails Up X 2 Placed Close to Nursing Station 1:1 Attendant Assigned Frequent Obs/Assessments Occuring Family Present and informed to notify staff if the need to leave the bedside As available patient and family educated on Fall Prevention Program and Strategies. Assessment: 19:10 General: Appears in no apparent distress. comfortable, slender, well groomed, Behavior fc is calm, cooperative, appropriate for age. Pain: Denies pain. Neuro: Level of Consciousness is awake, alert, obeys commands, Oriented to person, place, hx alzh.. International Project Engineer are equal bilaterally Moves all extremities. Gait is shuffling, Speech is normal, Facial symmetry appears normal. Cardiovascular: Denies chest pain, Heart tones S1 S2 Capillary refill < 3 seconds Pulses are all present. Rhythm is regular Chest pain is denied. Respiratory: Airway is patent Trachea midline Respiratory effort is even, unlabored, Respiratory pattern is regular, symmetrical, Breath sounds are clear bilaterally. GI: Abdomen is flat, Bowel sounds present X 4 quads. Abd is soft and non tender Patient currently denies nausea, pain, vomiting. : No deficits noted. EENT: No deficits noted. Derm: Skin is pink, warm \T\ dry. Musculoskeletal: Circulation, motion, and sensation intact. Capillary refill < 3 seconds, Range of motion: intact in all extremities. 19:30 Reassessment: No changes from previously documented assessment. Patient and/or family fc updated on plan of care and expected duration. Pain level reassessed. Patient is alert, oriented x 3, equal unlabored respirations, skin warm/dry/pink. Pt gone to CT Scan via w/c. 19:55 Reassessment: Pt has returned from CT Scan. fc 20:30 Reassessment: No changes from previously documented assessment. Patient and/or family fc updated on plan of care and expected duration. Pain level reassessed. Pt laying in bed, talking with family and denies any problems. 21:22 Reassessment: Dr Goodwin in to speak with pt and he will be admitted overnight for fc monitoring. 21:56 Reassessment: No changes from previously documented assessment. Patient and/or family fc updated on plan of care and expected duration. Pain level reassessed. Family has helped pt clean up and put on clean clothes. Pt is ready for bed. They will be leaving and have left numbers to contact in case any change arises. 22:50 Reassessment: Pt is resting quietly at this time. fc 23:30 Reassessment: No changes from previously documented assessment. Patient and/or family fc updated on plan of care and expected duration. Pain level reassessed. Pt continues to rest quietly. 04/17 00:30 Reassessment: No changes from previously documented assessment. Patient and/or family fc updated on plan of care and expected duration. Pain level reassessed. Pt moved to regular bed and made comfortable. Vital Signs: 04/16 18:30 BP 178 / 67; Pulse 47; Resp 16; Pulse Ox 99% ; Weight 77.11 kg; Height 5 ft. 9 in. sv (175.26 cm); Pain 0/10; 18:59 BP 174 / 69; Pulse 53; Resp 16; Pulse Ox 100% on R/A; sg 18:59 Temp 98.1; sg 19:10 BP 194 / 87; Pulse 51; Resp 18; Pulse Ox 99% on R/A; Pain 0/10; fc 20:10 BP 142 / 80; Pulse 49; Resp 20; Pulse Ox 99% on R/A; Pain 0/10; fc 20:20 BP 158 / 73; Pulse 50; Resp 18; Pulse Ox 99% on R/A; Pain 0/10; fc 21:20 BP 141 / 62; Pulse 50; Resp 18; Pulse Ox 94% on R/A; Pain 0/10; fc 21:57 BP 184 / 81; Pulse 53; Resp 20; Pulse Ox 99% on R/A; Pain 0/10; fc 22:51 BP 123 / 89; Pulse 50; Resp 18; Pulse Ox 98% on R/A; fc 23:30 BP 194 / 78; Pulse 61; Resp 18; Pulse Ox 98% ; Pain 0/10; fc 04/17 00:30 BP 165 / 61; Pulse 52; Resp 18; Pulse Ox 99% on R/A; Pain 0/10; fc 04/16 18:30 Body Mass Index 25.10 (77.11 kg, 175.26 cm) ED Course: 04/16 18:12 Patient arrived in ED. as 18:26 Nain Griffin, RN is Primary Nurse. sg 18:27 Triage completed. sv 18:30 Arm band placed on. sv 19:04 Jim Goodwin MD is Attending Physician. pkl 19:10 Patient has correct armband on for positive identification. Bed in low position. Call fc light in reach. Side rails up X2. Pulse ox on. NIBP on. 19:10 ambulation of patient. fc 19:30 Inserted saline lock: 22 gauge in right antecubital area, using aseptic technique. fc ,using aseptic technique. per [employer] Tech. 19:45 XRAY Chest (1 view) In Process Unspecified. EDMS 19:53 CT Head Brain wo Cont In Process Unspecified. EDMS 22:16 Srikanth Garcia MD is Hospitalizing Provider. pkl 04/17 00:30 Patient admitted, IV remains in place. fc 07:24 Patient moved to MRI via wheelchair. em2 07:51 MRI completed. Patient tolerated well. em2 08:40 Primary Nurse role handed off by Nain Griffin RN 08:52 Eleanor Coreas, CATHY is Primary Nurse. rb1 Administered Medications: No medications were administered Outcome: 04/16 22:17 Decision to Hospitalize by Provider. pkl 04/17 00:30 Admitted to ER Hold. Please see [facility] for further documentation. fc Condition: good Discharge instructions given to family, Instructed on the need for admit. 12:30 Patient left the ED. rb1 Signatures: Dispatcher [employer] Maile Shepard RN RN Nain Griffin RN RN Jim Goodwin MD MD pk Bee Lai RN RN Araceli Antonio Enrique em2 Coreas, Eleanor, RN RN rb1
--- NOTE | 2019-04-16 22:19 | EDPHYS ---
Physician Documentation [facility] Name: Victor Hugo Gray Age: 78 yrs Sex: Male : 1940 Arrival Date: 04/16/2019 Time: 18:12 Bed 20 Private MD: ED Physician Jim Goodwin HPI: 04/16 19:20 This 78 yrs old Male presents to ER via Wheelchair with complaints of High pkl Blood Pressure, Dizziness, Nausea. 19:20 The patient presents with dizziness, lightheadedness. Onset: The symptoms/episode pkl began/occurred just prior to arrival, 1 hour(s) ago. Associated signs and symptoms: Pertinent positives: nausea, gait unsteady. Historical: - Allergies: 18:30 No Known Allergies; sv - Home Meds: 18:30 Synthroid 50 mcg Oral tab 1 tab once daily [Active]; allopurinol 300 mg Oral tab 1 tab sv once daily [Active]; donepezil 10 mg oral tab 1 tab once daily [Active]; amlodipine 5 mg tab 1 tab once daily [Active]; bupropion HCl 150 mg Oral TbER 1 tab once daily [Active]; omeprazole 10 mg Oral cpDR once daily [Active]; Vitamin Oral tab 1 tab once daily [Active]; Vitamin B-12 5,000 mcg Oral daily [Active]; folic acid 300mg 2 tabs BID Oral tab once daily [Active]; docusate sodium 100 mg Oral cap 1 cap once daily [Active]; Iron CR Oral 325 mg twice a day [Active]; - PMHx: 18:30 Alzheimers; CAD; Gout; Hypertension; Thyroid problem; memory issues; Ulcers; sv - PSHx: 18:30 CABG; cardiac stents; sv - Immunization history:: Last tetanus immunization: unknown. - Social history:: Smoking status: Patient/guardian denies using tobacco. - Ebola Screening: : Patient negative for fever greater than or equal to 101.5 degrees Fahrenheit, and additional compatible Ebola Virus Disease symptoms Patient denies exposure to infectious person Patient denies travel to an Ebola-affected area in the 21 days before illness onset. ROS: 19:20 Eyes: Negative for injury, pain, redness, and discharge, ENT: Negative for injury, pkl pain, and discharge, Neck: Negative for injury, pain, and swelling, Cardiovascular: Negative for chest pain, palpitations, and edema, Respiratory: Negative for shortness of breath, cough, wheezing, and pleuritic chest pain. 19:20 Abdomen/GI: Positive for nausea. 19:20 Back: Negative for acute changes. 19:20 : Negative for urinary symptoms. 19:20 MS/extremity: Negative for acute changes. 19:20 Skin: Negative for rash. 19:20 Neuro: Positive for dizziness, gait disturbance. Exam: 19:20 Head/Face: Normocephalic, atraumatic. Eyes: Pupils equal round and reactive to light, pkl extra-ocular motions intact. Lids and lashes normal. Conjunctiva and sclera are non-icteric and not injected. Cornea within normal limits. Periorbital areas with no swelling, redness, or edema. ENT: Nares patent. No nasal discharge, no septal abnormalities noted. Tympanic membranes are normal and external auditory canals are clear. Oropharynx with no redness, swelling, or masses, exudates, or evidence of obstruction, uvula midline. Mucous membranes moist. Neck: Trachea midline, no thyromegaly or masses palpated, and no cervical lymphadenopathy. Supple, full range of motion without nuchal rigidity, or vertebral point tenderness. No Meningismus. Chest/axilla: Normal chest wall appearance and motion. Nontender with no deformity. No lesions are appreciated. Cardiovascular: Regular rate and rhythm with a normal S1 and S2. No gallops, murmurs, or rubs. Normal PMI, no JVD. No pulse deficits. Respiratory: Lungs have equal breath sounds bilaterally, clear to auscultation and percussion. No rales, rhonchi or wheezes noted. No increased work of breathing, no retractions or nasal flaring. Abdomen/GI: Soft, non-tender, with normal bowel sounds. No distension or tympany. No guarding or rebound. No evidence of tenderness throughout. Back: No spinal tenderness. No costovertebral tenderness. Full range of motion. Skin: Warm, dry with normal turgor. Normal color with no rashes, no lesions, and no evidence of cellulitis. 19:20 Neuro: Orientation: appropriate for stated age, Mentation: is normal, Cranial nerves: grossly normal, Cerebellar function: normal finger to nose testing, heel to keenan testing is normal, Motor: is normal, Sensation: is normal, Gait: is unsteady. Vital Signs: 18:30 BP 178 / 67; Pulse 47; Resp 16; Pulse Ox 99% ; Weight 77.11 kg; Height 5 ft. 9 in. sv (175.26 cm); Pain 0/10; 18:59 BP 174 / 69; Pulse 53; Resp 16; Pulse Ox 100% on R/A; sg 18:59 Temp 98.1; sg 19:10 BP 194 / 87; Pulse 51; Resp 18; Pulse Ox 99% on R/A; Pain 0/10; fc 20:10 BP 142 / 80; Pulse 49; Resp 20; Pulse Ox 99% on R/A; Pain 0/10; fc 20:20 BP 158 / 73; Pulse 50; Resp 18; Pulse Ox 99% on R/A; Pain 0/10; fc 21:20 BP 141 / 62; Pulse 50; Resp 18; Pulse Ox 94% on R/A; Pain 0/10; fc 21:57 BP 184 / 81; Pulse 53; Resp 20; Pulse Ox 99% on R/A; Pain 0/10; fc 22:51 BP 123 / 89; Pulse 50; Resp 18; Pulse Ox 98% on R/A; fc 23:30 BP 194 / 78; Pulse 61; Resp 18; Pulse Ox 98% ; Pain 0/10; fc 04/17 00:30 BP 165 / 61; Pulse 52; Resp 18; Pulse Ox 99% on R/A; Pain 0/10; fc 04/16 18:30 Body Mass Index 25.10 (77.11 kg, 175.26 cm) sv MDM: 04/16 19:04 Patient medically screened. pkl 22:15 Data reviewed: vital signs, nurses notes, lab test result(s), EKG, radiologic studies, pkl CT scan, plain films. 04/16 19:18 Order name: Basic Metabolic Panel; Complete Time: 20:41 pkl 04/16 19:18 Order name: CBC with Diff; Complete Time: 19:54 pkl 04/16 19:18 Order name: LFT's; Complete Time: 20:41 pkl 04/16 19:18 Order name: Magnesium; Complete Time: 20:41 pkl 04/16 19:18 Order name: NT PRO-BNP; Complete Time: 20:41 pkl 04/16 19:18 Order name: PT-INR; Complete Time: 19:54 pkl 04/16 19:18 Order name: Troponin (emerg Dept Use Only); Complete Time: 20:41 pkl 04/16 23:28 Order name: CBC with Automated Diff EDMS 04/16 23:28 Order name: CBC with Automated Diff; Complete Time: 09:58 EDMS 04/16 23:28 Order name: Comprehensive Metabolic Panel EDMS 04/16 23:28 Order name: Comprehensive Metabolic Panel; Complete Time: 09:58 EDMS 04/16 23:28 Order name: Lipid Profile EDMS 04/16 23:28 Order name: Lipid Profile; Complete Time: 09:58 EDMS 04/16 23:28 Order name: Troponin I EDMS 04/16 19:18 Order name: XRAY Chest (1 view); Complete Time: 20:41 pkl 04/16 19:18 Order name: EKG; Complete Time: 19:19 pkl 04/16 19:18 Order name: Cardiac monitoring; Complete Time: 20:33 pkl 04/16 19:18 Order name: EKG - Nurse/Tech; Complete Time: 20:33 pkl 04/16 19:18 Order name: IV Saline Lock; Complete Time: 19:44 pkl 04/16 19:18 Order name: Labs collected and sent; Complete Time: 19:44 pkl 04/16 19:19 Order name: CT Head Brain wo Cont; Complete Time: 20:41 pkl 04/16 23:28 Order name: CONS Pharmacy Consult EDDC 04/16 23:28 Order name: Heart Healthy EDDC 04/16 23:28 Order name: NPO EDDC 04/16 23:28 Order name: Troponin I; Complete Time: 09:58 EDMS 04/16 23:28 Order name: Troponin I EDDC 04/16 23:28 Order name: Troponin I EDDC 04/16 23:28 Order name: Brain Wo Cont EDMS 04/16 23:28 Order name: Brain Wo Cont; Complete Time: 09:58 EDMS 04/16 23:31 Order name: Physical Therapy Consult EDDC 04/16 19:18 Order name: O2 Per Protocol; Complete Time: 20:21 pkl 04/16 19:18 Order name: O2 Sat Monitoring; Complete Time: 20:21 pkl Administered Medications: No medications were administered Disposition: 04/16/19 22:17 Hospitalization ordered by Srikanth Garcia for Observation. Preliminary diagnosis is Uncontrolled Hypertension. Dizziness. Unsteady Gait. - Bed requested for [facility] ER HOLD. - Status is Observation. rb1 - Condition is Stable. - Problem is new. - Symptoms have improved. UTI on Admission? No Signatures: Dispatcher [employer] EDMaile Dumont RN RN Jim Goodwin MD MD pkl Bee Lai RN RN Garland Gautam PA PA [facility] Eleanor Coreas RN RN rb1 Luis Armando JackiPriscila mw2 Corrections: (The following items were deleted from the chart) 23:27 22:17 Hospitalization Ordered by Srikanth Garcia MD for Observation. Preliminary mw2 diagnosis is Uncontrolled Hypertension. Dizziness. Unsteady Gait. Bed requested for Telemetry/MedSurg (observation). Status is Observation. Condition is Stable. Problem is new. Symptoms have improved. UTI on Admission? No. pkl 04/17 12:30 04/16 23:27 04/16/2019 22:17 Hospitalization Ordered by Srikanth Garcia MD for rb1 Observation. Preliminary diagnosis is Uncontrolled Hypertension. Dizziness. Unsteady Gait. Bed requested for [facility] ER HOLD. Status is Observation. Condition is Stable. Problem is new. Symptoms have improved. UTI on Admission? No. mw2
[2019-04-16] MEDS ORDERED: ONDANSETRON 4 MG (ODT) TAB PO PRN (23:22)
[2019-04-16] MEDS ORDERED: MORPHINE 2 MG/ML SYR IV PRN (23:22)
[2019-04-16] MEDS ORDERED: ACETAMINOPHEN 500 MG TAB PO PRN (23:22)
[2019-04-16] MEDS ORDERED: NA CHLORIDE 0.9% 1,000 ML IV SCH (23:45)
[2019-04-17 01:12] VITALS: BMI 22.1
[2019-04-17 05:08] LABS: Absolute Lymphocytes (CBC) 2.2 K/uL (0.7-4.9); Basophils % 0.8 % (0-1.3); Hematocrit 40.3 % (39.6-49.0); Lymphocytes % 21.7 % (15.3-44.8); MPV 9.5 fL (7.6-11.3); RBC Red Blood Cell Count 4.12 M/uL (4.33-5.43)
[2019-04-17 05:21] LABS: ALT/SGPT 100 U/L (12-78); AST/SGOT 42 U/L (15-37); Albumin 3.8 g/dL (3.4-5.0); Alkaline Phosphatase 82 U/L (45-117); BUN Blood Urea Nitrogen 24 mg/dL (7-18); Bicarbonate 28 mmol/L (21-32); Bilirubin Total 0.4 mg/dL (0.2-1.0); Glucose Level 99 mg/dL (74-106); HDL Cholesterol 52 mg/dL (40-60); LDL Cholesterol, Calculated 205 (<130); Potassium 4.3 mmol/L (3.5-5.1); Protein, Total 7.9 g/dL (6.4-8.2); Sodium Level 139 mmol/L (136-145); Troponin I < 0.02 ng/mL (0.0-0.045)
--- NOTE | 2019-04-17 05:21 | P.HP ---
Certification for Inpatient Patient admitted to: Observation With expected LOS: <2 Midnights Patient will require the following post-hospital care: None Practitioner: I am a practitioner with admitting privileges, knowledge of patient current condition, hospital course, and medical plan of care. Services: Services provided to patient in accordance with Admission requirements found in Title 42 Section 412.3 of the Code of Federal Regulations Patient History Date of Service: 04/16/19 Reason for admission: Vertigo/ataxic History of Present Illness: Patient is a 78-year-old gentleman who came to the hospital with vertigo. Patient was lightheaded and nearly passed out. The room was spinning and he apparently had an ataxic gait. His grandson checked his blood pressure and it was elevated. He was brought into the emergency room for further evaluation. In the ER he has started doing much better. He is ambulating without any difficulty. According to the nursing staff when he went to the restroom he was able the stand on 1 leg and lift the toilet seat up with the other leg. I do not feel he has had a stroke. An MRI you would be valuable to determine if he has an acute infarct. If he does not he should be stable for discharge home. Patient does have advanced Alzheimer's dementia. The family states that over the last few months he has become much more forgetful. He is having to be monitored very closely. Probably needs a sitter with him at all times as he is a high risk for falling. We will discuss with family and have case management see the patient in a.m. However, this should not change discharge plan. Allergies No Known Allergies Allergy (Verified 07/27/18 22:33) Home Medications: Allopurinol 300 mg PO DAILY 07/27/18 Amlodipine [Norvasc*] 1 tab PO DAILY 07/27/18 Cyanocobalamin (Vitamin B-12) [Vitamin B12] 5,000 mcg PO DAILY 07/27/18 Docusate Sodium 1 tab PO BEDTIME 07/27/18 Ferrous Sulfate [Iron] 1 tab PO BEDTIME 07/27/18 Pnv No.95/Ferrous Fum/Folic AC [ Multivitamin Tablet] 1 each PO DAILY Bupropion HCl [Bupropion Xl] 150 mg PO DAILY 04/16/19 Donepezil HCl 10 mg PO BEDTIME 01/01/20 Folic Acid 2 tab PO BEDTIME 04/16/19 Levothyroxine Sodium [Synthroid] 50 mcg PO DAILY 04/16/19 [place]-3/Dha/Epa/Fish Oil [[place] 3 500 Softgel] 1 each PO BID 04/16/19 Omeprazole 20 mg PO BEDTIME 04/16/19 - Past Medical/Surgical History Diabetic: No -: Alzheimer's -: CAD -: Gout -: Hypertension -: CABG - Family History Father Medical History: Heart disease - Social History Smoking Status: Former smoker Alcohol use: No CD- Drugs: No Caffeine use: Yes Place of Residence: Home Review of Systems is unable to be obtained Physical Examination - Vital Signs Temperature: 98.2 F Blood Pressure: 176/87 Pulse: 68 Respirations: 16 Pulse Ox (%): 98 - Physical Exam General: Alert, In no apparent distress, Oriented x3 HEENT: Atraumatic, PERRLA, Mucous membr. moist/pink, EOMI, Sclerae nonicteric Neck: Supple, 2+ carotid pulse no bruit, No LAD, Without JVD or thyroid abnormality Respiratory: Clear to auscultation bilaterally, Normal air movement Cardiovascular: Regular rate/rhythm, Normal S1 S2, No murmurs Gastrointestinal: Normal bowel sounds, Soft and benign, Non-distended, No tenderness Musculoskeletal: No clubbing, No swelling, No tenderness Integumentary: No rashes Neurological: Normal gait, Normal speech, Normal strength at 5/5 x4 extr, Normal tone, Sensation intact, Cranial nerves 3-12 intact, Normal affect Lymphatics: No axilla or inguinal lymphadenopathy - Studies Laboratory Data (last 24 hrs) 04/16/19 19:28: PT 12.2, INR 1.04 04/16/19 19:28: WBC 9.4, Hgb 14.1, Hct 42.6, Plt Count 196 04/16/19 19:28: Sodium 139, Potassium 4.7, BUN 24 H, Creatinine 2.15 H, Glucose 107 H, Magnesium 2.3, Total Bilirubin 0.3, AST 47 H, ALT 108 H, Alkaline Phosphatase 86 Assessment & Plan - Problems (Diagnosis) (1) Vertigo Current Visit: Yes Status: Acute (2) Ataxia Current Visit: Yes Status: Acute (3) Near syncope Current Visit: Yes Status: Acute (4) Hypertension Current Visit: Yes Status: Acute (5) History of coronary artery bypass graft Current Visit: No Status: Acute - Plan Plan: 1. Anti-platelet and statin therapy 2. Strict blood pressure control 3. MRI of the brain in the morning 4. PT eval 5. DVT prophylaxis 6. Lipid profile 7. If workup is negative, possible discharge home Discharge Plan: Home Plan to discharge in: 24 Hours - Advance Directives Does patient have a Living Will: Yes Does patient have a Durable POA for Healthcare: Yes - Code Status/Comfort Care Code Status Assessed: Yes Code Status: Full Code Critical Care: No Time Spent Managing PTS Care (In Minutes): 45
--- NOTE | 2019-04-17 08:14 | RAD REPORT ---
EXAM DESCRIPTION: MRI - Brain Wo Cont - 04/17/2019 7:54 am CLINICAL HISTORY: syncope/vertigo/ataxia COMPARISON: MRI BRAIN WITHOUT CONTRAST dated 02/03/2013; Head Brain Wo Cont dated 04/16/2019; Head Bra in Wo Cont dated 05/23/2016 TECHNIQUE: Sagittal T1-weighted images were obtained along with axial PD, heavily T2-weighted and T2 -FLAIR images. Axial DWI and ADC mapping sequences were also obtained along with coronal heavily T2-w eighted images. FINDINGS: No intracranial hemorrhage, mass or acute infarction. There is no edema or shift of midlin e structures. No extra-axial fluid collections. Smith-matter/white matter junction is preserved. Signa l voids are seen as a normal finding in the major intracranial vessels. Ventriculomegaly and atrophy changes are present and stable from prior imaging. Chronic ischemic espitia ges are seen in the cerebral white matter. Brainstem, thalamus and basal ganglia tissues are spared a ny significant chronic ischemic change. No globe or orbital content abnormality. No sella or supra sella abnormality. Mastoid air cells and paranasal sinuses are clear. IMPRESSION: No acute infarction. No mass, hemorrhage or acute intracranial finding. Atrophy, chronic ischemic pattern and ventriculomegaly match prior imaging studies.
[2019-04-17] MEDS ORDERED: ASPIRIN EC 81 MG TAB PO SCH (09:00)
[2019-04-17] MEDS ORDERED: ASPIRIN EC 81 MG TAB PO ONE (09:52)
[2019-04-17 12:49] VITALS: O2SAT 99
[2019-04-17] MEDS ORDERED: ENOXAPARIN 30 MG/0.3 ML SQ SCH (17:00)
[2019-04-17] MEDS ORDERED: ENOXAPARIN 40 MG/0.4 ML SQ SCH (17:00)
[2019-04-17 17:34] VITALS: BP 168/79; TEMP 98.4
[2019-04-17] MEDS ORDERED: ATORVASTATIN 40 MG TAB PO SCH (21:00)
--- NOTE | 2019-04-18 06:47 | EKG ---
Test Date: 2019-04-16 Test Time: 20:13:20 Kick Boxer: CHARITO MEASUREMENT RESULTS: Intervals: Rate: 51 VA: QRSD: 126 QT: 530 QTc: 488 [place]: P: VA: QRS: -54 T: 247 INTERPRETIVE STATEMENTS: Undetermined rhythm Left axis deviation Nonspecific intraventricular block Cannot rule out Inferior infarct, age undetermined T wave abnormality, consider anterolateral ischemia Abnormal ECG Compared to ECG 07/27/2018 14:51:26 Myocardial infarct finding now present T-wave abnormality now present Sinus rhythm no longer present ST (T wave) deviation no longer present Possible ischemia still present Electronically Signed On 04-18-19 06:43:51 MAGNETIC TESTING TECHNICIAN by Yash Blood
== END 2019-04-17 12:30 | disposition home or self-care (01) ==
LOC: ER 18:11 → ERHOLD 23:25
PROVIDERS: ADMIT Hospitalist; ATTEND Hospitalist
DX: R42 Dizziness and giddiness (principal); R27.8 Other lack of coordination; R55 Syncope and collapse; G30.9 Alzheimer's disease, unspecified; F02.80 Dementia in other diseases classified elsewhere, unspecified severity, without behavioral disturbance, psychotic disturbance, mood disturbance, and anxiety; I25.10 Atherosclerotic heart disease of native coronary artery without angina pectoris; M10.9 Gout, unspecified; I10 Essential (primary) hypertension; Z95.1 Presence of aortocoronary bypass graft; Z87.891 Personal history of nicotine dependence
CPT/HCPCS: 93005; 85025 ×2; 80048; 36415; 83735; 85610; 80061; 80076; 84484 ×2; 80053; 83880; 70450; 71045; 70551; 99285; G0378 ×2